=== PATIENT | female | born 1960 | race Two or more races ===

== ENCOUNTER 2016-10-30 18:19 | Emergency (ER) | payer OTHER ==
[~2016-10-30] VITALS: Ht 160 cm; Wt 79.8 kg
[2016-10-30] MEDS ORDERED: KETOROLAC TROMETHAMINE INJ 60 MG/2 ML VIAL IM ONE ×2 (18:48→19:00)
[2016-10-30 19:59] VITALS: BP 110/53
== END 2016-10-30 19:59 | disposition home or self-care (01) ==
LOC: ER 18:21
DX: M54.5 Low back pain (principal); M79.652 Pain in left thigh; F17.210 Nicotine dependence, cigarettes, uncomplicated; W01.0XXA Fall on same level from slipping, tripping and stumbling without subsequent striking against object, initial encounter; Y92.89 Other specified places as the place of occurrence of the external cause; Y93.89 Activity, other specified; Y99.8 Other external cause status
CPT/HCPCS: 72100; 96372; 99284; A4606; J1885; Z7610

== ENCOUNTER 2019-07-01 19:32 | Emergency (ER) | payer OTHER ==
[~2019-07-01] VITALS: Ht 160 cm; Wt 82.1 kg
[2019-07-01 19:43] VITALS: BP 140/87
--- NOTE | 2019-07-01 19:57 | NUR ---
AT BEDSIDE FOR EVAL.
[2019-07-01] MEDS ORDERED: NEOMY SULF/BACITRAC ZN/POLY 15 GM TUBE TP SCH (20:00)
--- NOTE | 2019-07-01 20:06 | NUR ---
Patient discharged to home in stable condition. Written and verbal after care instructions given. Patient verbalizes understanding of instruction.
== END 2019-07-01 20:07 | disposition home or self-care (01) ==
LOC: ER 19:36
DX: S30.0XXA Contusion of lower back and pelvis, initial encounter (principal); F17.200 Nicotine dependence, unspecified, uncomplicated; Z86.19 Personal history of other infectious and parasitic diseases; Z88.0 Allergy status to penicillin; Z88.6 Allergy status to analgesic agent; X58.XXXA Exposure to other specified factors, initial encounter; Y93.89 Activity, other specified; Y92.89 Other specified places as the place of occurrence of the external cause; Y99.8 Other external cause status

== ENCOUNTER 2019-10-01 08:53 | Emergency (ER) | payer OTHER ==
[~2019-10-01] VITALS: Ht 160 cm; Wt 90.7 kg
[2019-10-01 09:10] VITALS: BP 146/82
== END 2019-10-01 09:40 | disposition home or self-care (01) ==
LOC: ER 08:53
DX: S61.250A Open bite of right index finger without damage to nail, initial encounter (principal); F17.200 Nicotine dependence, unspecified, uncomplicated; Z86.19 Personal history of other infectious and parasitic diseases; Z88.0 Allergy status to penicillin; Z88.6 Allergy status to analgesic agent; W54.0XXA Bitten by dog, initial encounter; Y93.89 Activity, other specified; Y92.89 Other specified places as the place of occurrence of the external cause; Y99.8 Other external cause status

== ENCOUNTER 2021-04-11 03:28 | Inpatient (IN) | payer OTHER ==
[~2021-04-11] VITALS: Ht 161.3 cm; Wt 98.0 kg
--- NOTE | 2021-04-11 03:28 | NUR ---
PT AAOX4. BIBSELF C/O LOWER ABD PAIN X3 DAYS. WORST TODAY. PLACED IN BED 12 ON MONITOR AND PULSE OX. NO ACUTE DISTRESS NOTED. AWAITING ER MD FOR EVAL AND ORDERS. +NAUSEA -VOMITING.
[2021-04-11] MEDS ORDERED: ONDANSETRON HCL/PF 4 MG/2 ML VIAL ONE (03:52)
[2021-04-11] MEDS ORDERED: MORPHINE SULFATE INJ 4 MG/ML DISP.SYRIN ONE ×2 (03:52→08:09)
[2021-04-11] MEDS ORDERED: MORPHINE SULFATE INJ 2 MG/ML DISP.SYRIN IV ONE ×2 (04:00→08:30)
[2021-04-11] MEDS ORDERED: ONDANSETRON HCL/PF 4 MG/2 ML VIAL IVP ONE (04:00)
[2021-04-11] MEDS ORDERED: IV NS 0.9% 1,000 ML BAG IV ONE (04:00)
[2021-04-11] MEDS ORDERED: IOHEXOL-300 100 ML VIAL IV ONE (04:11)
[2021-04-11 04:13] LABS: BASOPHILS % (AUTO) 0.8 % (0.0-2.0); EOSINOPHILS % (AUTO) 2.1 % (0.0-6.0); HEMATOCRIT 46 % (33-45); HEMOGLOBIN 15.2 g/dL (11.5-14.8); LYMPHOCYTES % (AUTO) 24.2 % (20.0-44.0); MEAN CORPUSCULAR HGB CONC 33 g/dl (31.0-36.0); MEAN CORPUSCULAR VOLUME 94 fL (82-100); MONOCYTES # (AUTO) 0.4 K/uL (0.1-1.30); MONOCYTES % (AUTO) 10.1 % (2.0-12.0); NEUTROPHILS # (AUTO) 2.5 K/uL (1.8-8.9); NEUTROPHILS % (AUTO) 62.8 % (43.0-81.0); PLATELET COUNT (AUTO) 90 K/uL (150-450); RED BLOOD CELL COUNT(AUTO) 4.87 MIL/uL (4.0-5.2)
--- NOTE | 2021-04-11 04:41 | NUR ---
BLOOD WAS HEMOLYZED. IV LINE ESTABLISHED ON THE LEFT FOREARM 20G. BLOOD COLLECTED AND SENT TO THE LAB.
--- NOTE | 2021-04-11 04:42 | NUR ---
US AT BEDSIDE
[2021-04-11 05:14] LABS: ALBUMIN 3.5 g/dL (3.4-5.0); BILIRUBIN,DIRECT 0.3 mg/dL (0.0-0.2); BILIRUBIN,TOTAL 1.3 mg/dL (0.2-1.0); CALCIUM, SERUM 8.6 mg/dL (8.5-10.1); CREATININE 0.8 mg/dL (0.6-1.3); POTASSIUM 3.5 mmol/L (3.5-5.1); TOTAL PROTEIN, SERUM 7.2 g/dL (6.4-8.2)
--- NOTE | 2021-04-11 07:16 | NUR ---
RECEIVED REPORT FROM SHIRLEY FOR DOMINIQUE. PT IS AAOX3, NOT IN RESPIRATORY DISTRESS, V/S STABLE, KEPT RESTED AND COMFORTABLE. WILL CONTINUE TO MONITOR.
--- NOTE | 2021-04-11 07:37 | NUR ---
SPOKED TO EDVIN MASTER AUTOMOTIVE GLASS TECHNICIAN. PT IS APPROVED TO STAY FOR ADMISSION.
--- NOTE | 2021-04-11 07:59 | NUR ---
covid swab collected and sent to lab.
--- NOTE | 2021-04-11 08:01 | NUR ---
paged epic signal constructor for panel admission. Awaiiting MD to call back.
--- NOTE | 2021-04-11 08:11 | NUR ---
ER MD AND GI SPECIALIST LOCAL TANKER TRUCK DRIVER CONSULTING
[2021-04-11 08:14] LABS: BILIRUBIN,URINE SMALL (NEGATIVE); COLOR,URINE YELLOW (YELLOW); LEUKOCYTE ESTERASE ,URINE Negative (NEGATIVE); NITRITE, URINE Negative (NEGATIVE); PH,URINE 6.5 (5.0-8.0); PROTEIN,URINE Negative (NEGATIVE); UGLUCOSE Negative (NEGATIVE); UROBILINOGEN,URINE 0.2 EU/dL (0.2)
[2021-04-11 08:44] LABS: BACTERIA,URINE Rare /HPF (None Seen); SQUAMOUS EPITHELIAL CELL,UR Few /HPF (None Seen); WBC,URINE NONE SEEN /HPF (0-3)
--- NOTE | 2021-04-11 09:29 | NUR ---
room [id number]
--- NOTE | 2021-04-11 09:45 | NUR ---
RN NOTE RECEIVED REPORT FROM SARAH RN
--- NOTE | 2021-04-11 09:45 | NUR ---
REPORT GIVEN TO CHELSEY PAGE FOR DOMINIQUE.
--- NOTE | 2021-04-11 09:51 | NUR ---
RN NOTE PATIENT WAS BROUGHT UP VIA BED. A/O X4. ON ROOM AIR, NO SOB NOTED. IN NO APPARENT DISTRESS. DENIES ANY PAIN AT THIS TIME. IV ACCESS ON L WRIST #20, R WRIST #22 G, INTACT AND PATENT. SKIN IS INTACT. SAFETY MEASURES MAINTAINED. BED IN LOWEST POSITION, BRAKES LOCKED. SIDE RAILS UP X2. CALL LIGHT WITHIN REACH. VS 1116/85 NM 73 RR 18 T 98.4 SA02 97%
[2021-04-11 10:00] VITALS: BP 121/69
--- NOTE | 2021-04-11 10:50 | NUR ---
RN NOTE DR DEBBY PATEL VERBALLY ORDERED REGULAR DIET. REPEAT ORDER AND CARRIED OUT.
[2021-04-11] MEDS ORDERED: Z GUARD REMEDY 2 OZ OINT TP PRN (11:00)
[2021-04-11] MEDS ORDERED: ZOLPIDEM TARTRATE 5 MG TABLET PO PRN (11:00)
[2021-04-11] MEDS ORDERED: ACETAMINOPHEN 325 MG TABLET PO PRN (11:00)
[2021-04-11] MEDS ORDERED: MAGNESIUM HYDROXIDE 30 ML UDC PO PRN (11:00)
[2021-04-11] MEDS: HYDROCODONE/APAP 5/325MG TABLET PO PRN ×2 (13:04→17:26)
[2021-04-11 16:00] VITALS: BP 116/85
[2021-04-11] MEDS: ONDANSETRON HCL/PF 4 MG/2 ML VIAL IVP PRN (16:02)
--- NOTE | 2021-04-11 18:13 | NUR ---
RN CLOSING NOTE PATIENT SITTING IN A CHAIR. A/O X4. ON ROOM AIR, NO SOB NOTED. IN NO APPARENT DISTRESS. IV ACCESS ON L WRIST #20, R WRIST #22 G, INTACT AND PATENT. ABLE TO MAKE NEEDS KNOWN. SAFETY MEASURES MAINTAINED. BED IN LOWEST POSITION, BRAKES LOCKED. SIDE RAILS UP X2. KEPT CALL LIGHT WITHIN REACH. WILL ENDORSE CONTINUITY OF CARE TO ONCOMING SHIFT.
--- NOTE | 2021-04-11 19:45 | NUR ---
MS RN OPENING NOTES Patient is awake, A&Ox4. C/o unrelieved abdominal pain, will f/u with MD about possibly getting something stronger. No other complaints at this time. Patient able to make needs known. Family at bedside.
[2021-04-11 20:00] VITALS: BP 116/86
--- NOTE | 2021-04-11 20:45 | NUR ---
Patient continues to c/o severe mid-abdominal pain and that [place] is not helping at all. MD on-call notified with new order for Morphine 2mg q4h PRN for severe pain 8-10. Patient thankful.
[2021-04-11] MEDS: MORPHINE SULFATE INJ 2 MG/ML DISP.SYRIN IV PRN (21:42)
[2021-04-12] MEDS: MORPHINE SULFATE INJ 2 MG/ML DISP.SYRIN IV PRN ×5 (02:23→20:40)
[2021-04-12] MEDS: HYDROCODONE/APAP 5/325MG TABLET PO PRN ×3 (04:11→12:32)
[2021-04-12] MEDS: ONDANSETRON HCL/PF 4 MG/2 ML VIAL IVP PRN ×3 (05:47→20:40)
--- NOTE | 2021-04-12 06:31 | NUR ---
Patient sleeping intermittently throughout night though easy to wake. Continues to have stomach pain needing morphine and norco, but relief felt. c/o feeling of constipation MOM given at 0411 -still no BM. Had episode of nausea at 0545 vomited x1 clear liquid then resolved after admin of zofran. Patient is now calm laying in bed. awaiting AM GI consult.
[2021-04-12 08:00] VITALS: BP 134/85
[2021-04-12] MEDS: PANTOPRAZOLE 40 MG TABLET.DR PO SCH (08:26)
[2021-04-12 08:54] LABS: BASOPHILS % (AUTO) 0.4 % (0.0-2.0); EOSINOPHILS % (AUTO) 1.1 % (0.0-6.0); HEMATOCRIT 45 % (33-45); HEMOGLOBIN 14.7 g/dL (11.5-14.8); LYMPHOCYTES # (AUTO) 0.6 K/uL (0.8-4.8); MEAN CORPUSCULAR HGB CONC 33 g/dl (31.0-36.0); MEAN CORPUSCULAR VOLUME 95 fL (82-100); MONOCYTES # (AUTO) 0.4 K/uL (0.1-1.30); MONOCYTES % (AUTO) 8.9 % (2.0-12.0); NEUTROPHILS # (AUTO) 3.1 K/uL (1.8-8.9); NEUTROPHILS % (AUTO) 74.6 % (43.0-81.0); PLATELET COUNT (AUTO) 54 K/uL (150-450); RED BLOOD CELL COUNT(AUTO) 4.79 MIL/uL (4.0-5.2); WHITE BLOOD COUNT (AUTO) 4.2 K/uL (4.3-11.0)
[2021-04-12 09:08] LABS: CALCIUM, SERUM 8.6 mg/dL (8.5-10.1); CREATININE 0.9 mg/dL (0.6-1.3); MAGNESIUM 2.3 mg/dL (1.8-2.4); PHOSPHORUS 3.5 mg/dL (2.5-4.9); POTASSIUM 3.6 mmol/L (3.5-5.1)
[2021-04-12 09:12] LABS: THYROID STIMULATING HORMONE 1.999 uIU/mL (0.358-3.74)
[2021-04-12 11:00] LABS: LYMPHOCYTES % (MANUAL) 8 % (16-48); MONOCYTES % (MANUAL) 10 % (0-11.0); NEUTROPHILS % (MANUAL) 82 (42-76)
[2021-04-12] MEDS ORDERED: LACTULOSE 10 G/15 ML UDC (PYXIS) PO PRN (13:00)
[2021-04-12] MEDS ORDERED: HEPARIN INFUSION/D5W 500 ML IV PRN (15:30)
[2021-04-12] MEDS ORDERED: IOHEXOL-300 100 ML VIAL IV ONE (15:56)
[2021-04-12] MEDS ORDERED: IV NS 0.9% 250 ML IV ONE (15:56)
[2021-04-12 16:00] VITALS: BP 135/95
--- NOTE | 2021-04-12 19:14 | NUR ---
1ST ATTEMPT AT 1600 UNSUCCESSFUL, DUE TO LAB AT BEDSIDE. 2ND ATTEMPT @ 1740 IV INFILTRATED UPON INJECTION OF 10CC SALINE, PT'S NURSE WAS UNABLE TO SUCCESSFULLY PLACE NEW IV IN CT ROOM. PT WAS TAKEN BY WHEELCHAIR BACK TO ROOM. PLEASE CALL RADIOLOGY AT EXT# [phone] WHEN ADEQUATE IV ACCESS IS OBTAINED.
--- NOTE | 2021-04-12 19:43 | NUR ---
Patient is A&Ox4. C/o 6/ pain but does not want norco as it makes her nauseous. IV attempt made unsuccessful -AM unsuccessful as well. No IV access at this time. Will f/u about midline insertion. Nursing interventions in place.
[2021-04-12 20:00] VITALS: BP 129/86
--- NOTE | 2021-04-12 21:07 | NUR ---
went down for CT
[2021-04-12] MEDS: HEPARIN INFUSION/D5W 500 ML IV PRN (22:32)
--- NOTE | 2021-04-12 22:32 | NUR ---
Heparin protocol followed. 2 nurses verify and sign dosing per order for non-ACS heparin therapy. Put in order for PTT 6 hours after start. Will monitor patient closely. Heparin drip started at 2232.
[2021-04-12 23:01] LABS: HEMOGLOBIN 14.8 g/dL (11.5-14.8); MONOCYTES # (AUTO) 0.5 K/uL (0.1-1.30)
[2021-04-12 23:07] LABS: BASOPHILS % (AUTO) 0.4 % (0.0-2.0); EOSINOPHILS % (AUTO) 0.6 % (0.0-6.0); HEMATOCRIT 45 % (33-45); LYMPHOCYTES # (AUTO) 0.7 K/uL (0.8-4.8); LYMPHOCYTES % (AUTO) 11.5 % (20.0-44.0); MEAN CORPUSCULAR HGB CONC 33 g/dl (31.0-36.0); MEAN CORPUSCULAR VOLUME 95 fL (82-100); MONOCYTES % (AUTO) 7.6 % (2.0-12.0); NEUTROPHILS # (AUTO) 5.2 K/uL (1.8-8.9); NEUTROPHILS % (AUTO) 79.9 % (43.0-81.0); PLATELET COUNT (AUTO) 55 K/uL (150-450); RED BLOOD CELL COUNT(AUTO) 4.78 MIL/uL (4.0-5.2); WHITE BLOOD COUNT (AUTO) 6.5 K/uL (4.3-11.0)
[2021-04-12 23:47] LABS: BASOPHILS % (MANUAL) 0 % (0.0-2.0); EOSINOPHILS % (MANUAL) 1 % (0-4); LYMPHOCYTES % (MANUAL) 7 % (16-48)
[2021-04-12 23:48] LABS: BAND % (MANUAL) 5 % (0.0-5.0); MONOCYTES % (MANUAL) 11 % (0-11.0)
[2021-04-12 23:49] LABS: NEUTROPHILS % (MANUAL) 76 (42-76)
[2021-04-13] MEDS: MORPHINE SULFATE INJ 2 MG/ML DISP.SYRIN IV PRN ×6 (00:40→21:26)
[2021-04-13] MEDS ORDERED: NA PHOS,M-B/NA PHOS,DI-BA 1 EA ENEMA RC ONE (04:00)
--- NOTE | 2021-04-13 04:39 | NUR ---
PTT being drawn by audio visual design engineer.
[2021-04-13 04:54] LABS: BASOPHILS # (AUTO) 0.1 K/uL (0.0-0.2); BASOPHILS % (AUTO) 0.9 % (0.0-2.0); EOSINOPHILS % (AUTO) 1.4 % (0.0-6.0); HEMATOCRIT 45 % (33-45); HEMOGLOBIN 14.7 g/dL (11.5-14.8); LYMPHOCYTES # (AUTO) 1.1 K/uL (0.8-4.8); LYMPHOCYTES % (AUTO) 17.4 % (20.0-44.0); MEAN CORPUSCULAR HGB CONC 33 g/dl (31.0-36.0); MEAN CORPUSCULAR VOLUME 94 fL (82-100); MONOCYTES # (AUTO) 0.5 K/uL (0.1-1.30); MONOCYTES % (AUTO) 7.8 % (2.0-12.0); NEUTROPHILS # (AUTO) 4.6 K/uL (1.8-8.9); NEUTROPHILS % (AUTO) 72.5 % (43.0-81.0); PLATELET COUNT (AUTO) 64 K/uL (150-450); RED BLOOD CELL COUNT(AUTO) 4.76 MIL/uL (4.0-5.2); WHITE BLOOD COUNT (AUTO) 6.4 K/uL (4.3-11.0)
[2021-04-13 05:14] LABS: ALBUMIN 3.7 g/dL (3.4-5.0); CALCIUM, SERUM 8.7 mg/dL (8.5-10.1); MAGNESIUM 2.4 mg/dL (1.8-2.4); PHOSPHORUS 3.9 mg/dL (2.5-4.9); POTASSIUM 3.7 mmol/L (3.5-5.1); TOTAL PROTEIN, SERUM 7.4 g/dL (6.4-8.2)
--- NOTE | 2021-04-13 05:56 | NUR ---
enema effective able to have large BM
--- NOTE | 2021-04-13 06:42 | NUR ---
0430 PTT 140.7. Per Efrain stop heparin drip and hold for 1 hour then redraw PTT. Notify AM of result.
--- NOTE | 2021-04-13 06:45 | NUR ---
Patient currently awake, A&Ox4. Sleeping but easy to rouse. Feels relieved after BM. heparin drip is still stopped per MD order.
[2021-04-13 07:07] LABS: CARBOHYDRATE AG 19-9 28 U/mL (0-35)
[2021-04-13] MEDS: PANTOPRAZOLE 40 MG TABLET.DR PO SCH (07:30)
--- NOTE | 2021-04-13 07:30 | NUR ---
RN MS NOTES PT IN BED, AWAKE, ALERT AND ORIENTED, WITH COMPLAINT OF ABDOMINAL PAIN AND NAUSEA, NOT IN DISTRESS, AMBULATES INSIDE HER ROOM AND IN THE BATHROOM WITH STEADY GAIT, HEPARIN DRIP ON HOLD, AWAITING FOR LATEST PTT RESULT, NO BLEEDING NOTED.
[2021-04-13 08:00] VITALS: BP 152/96
[2021-04-13 08:07] LABS: IMMUNOGLOBULIN A, SERUM 227 mg/dL (87-352); IMMUNOGLOBULIN G, SERUM 1720 mg/dL (586-1602); IMMUNOGLOBULIN M, SERUM 199 mg/dL (26-217)
[2021-04-13] MEDS: ONDANSETRON HCL/PF 4 MG/2 ML VIAL IVP PRN (08:10)
--- NOTE | 2021-04-13 09:06 | NUR ---
RN MS NOTES RECEIVED LATEST PTT RESULT 45.6, TAMMI LEAD CYTOGENETIC TECHNOLOGIST INFORMED AND ORDERED TO REFER TO PHARMACY FOR PROTOCOL, CONSULTED WITH PHARMACIST EDVIN, RESTARTED PT ON 1200 U/HR HEPARIN DRIP AND ORDERED REPEAT PTT AFTER 6 HOURS.
[2021-04-13 10:07] LABS: *SPE ALPHA-1-GLOBULIN 0.3 g/dL (0.0-0.4); *SPE ALPHA-2-GLOBULIN 0.7 g/dL (0.4-1.0); *SPE M-SPIKE Not Observed g/dL (Not Observed); *SPEGAMMA GLOBULIN 1.9 g/dL (0.4-1.8)
[2021-04-13] MEDS: METOCLOPRAMIDE HCL 10 MG/2 ML VIAL IV SCH ×3 (11:07→21:25)
[2021-04-13 12:06] LABS: AFP, TUMOR MARKER Note: ng/mL (0.0-8.3)
[2021-04-13 16:00] VITALS: BP 120/82
[2021-04-13 16:48] LABS: BASOPHILS % (AUTO) 0.7 % (0.0-2.0); EOSINOPHILS % (AUTO) 2.1 % (0.0-6.0); HEMATOCRIT 42 % (33-45); HEMOGLOBIN 13.6 g/dL (11.5-14.8); LYMPHOCYTES # (AUTO) 1.1 K/uL (0.8-4.8); LYMPHOCYTES % (AUTO) 24.2 % (20.0-44.0); MEAN CORPUSCULAR HGB CONC 32 g/dl (31.0-36.0); MEAN CORPUSCULAR VOLUME 95 fL (82-100); MONOCYTES # (AUTO) 0.5 K/uL (0.1-1.30); MONOCYTES % (AUTO) 9.7 % (2.0-12.0); NEUTROPHILS % (AUTO) 63.3 % (43.0-81.0); PLATELET COUNT (AUTO) 62 K/uL (150-450); RED BLOOD CELL COUNT(AUTO) 4.43 MIL/uL (4.0-5.2); WHITE BLOOD COUNT (AUTO) 4.7 K/uL (4.3-11.0)
--- NOTE | 2021-04-13 17:08 | NUR ---
RN MS NOTES PTT 58.1, NO CHANGE PER HEPARIN SLIDING SCALE, PTT ORDERED IN AM.
--- NOTE | 2021-04-13 18:39 | NUR ---
RN CLOSING NOTE PATIENT SITTING ON BED, A/O X4. ON ROOM AIR, NO SOB NOTED, NOT IN DISTRESS, WITH IV ACCESS ON L WRIST #20, R WRIST #22 G, INTACT AND PATENT. ABLE TO MAKE NEEDS KNOWN. SAFETY MEASURES MAINTAINED. BED IN LOWEST LOCKED POSITION. SIDE RAILS UP X2. KEPT CALL LIGHT WITHIN REACH. WILL ENDORSE CONTINUITY OF CARE TO THEATER USHER.
--- NOTE | 2021-04-13 19:30 | NUR ---
MS RN OPENING NOTE RECEIVED PATIENT SITTING ON BED, AWAKE, A/O X4. ON ROOM AIR, NO SOB NOTED, NOT IN ANY FORM OF DISTRESS NOTED, WITH IV ACCESS ON L WRIST #20 WITH ONGOING HEPARIN DRIP AT 1200 UNITS/HR, NO S/SX OF BLEEDING NOTED, R WRIST #22 G, INTACT AND PATENT, KADEN MIDLINE, PATENT AND FLUSHES WELL. ABLE TO MAKE NEEDS KNOWN. NO COMPLAINTS OF PAIN AT THIS TIME. SAFETY MEASURES OBSERVED. BED IN LOWEST LOCKED POSITION. SIDE RAILS UP X2. KEPT CALL LIGHT WITHIN REACH. WILL CONTINUE TO MONITOR PATIENT'S CURRENT CONDITION.
[2021-04-13 20:00] VITALS: BP 118/63
[2021-04-13] MEDS: HEPARIN INFUSION/D5W 500 ML IV PRN (21:12)
--- NOTE | 2021-04-13 21:26 | NUR ---
PAIN MANAGEMENT PATIENT HAS C/O OF ABDOMINAL PAIN WITH PAIN SCALE OF 9/10, DUE MORPHINE GIVEN ORDERED. WILL CONTINUE TO MONITOR PATIENT'S PAIN STATUS.
[2021-04-14] MEDS: ONDANSETRON HCL/PF 4 MG/2 ML VIAL IVP PRN ×2 (01:55→13:56)
[2021-04-14] MEDS: MORPHINE SULFATE INJ 2 MG/ML DISP.SYRIN IV PRN ×6 (01:55→22:33)
--- NOTE | 2021-04-14 01:57 | NUR ---
PAIN MANAGEMENT PATIENT HAS C/O OF ABDOMINAL PAIN WITH PAIN SCALE OF 9/10, DUE MORPHINE GIVEN ORDERED. WILL CONTINUE TO MONITOR PATIENT'S PAIN STATUS.
[2021-04-14] MEDS: METOCLOPRAMIDE HCL 10 MG/2 ML VIAL IV SCH ×4 (03:40→21:16)
[2021-04-14 06:12] LABS: BASOPHILS % (AUTO) 0.6 % (0.0-2.0); EOSINOPHILS % (AUTO) 2.4 % (0.0-6.0); HEMATOCRIT 40 % (33-45); LYMPHOCYTES # (AUTO) 1.2 K/uL (0.8-4.8); LYMPHOCYTES % (AUTO) 30.8 % (20.0-44.0); MEAN CORPUSCULAR HGB CONC 33 g/dl (31.0-36.0); MEAN CORPUSCULAR VOLUME 94 fL (82-100); MONOCYTES # (AUTO) 0.3 K/uL (0.1-1.30); MONOCYTES % (AUTO) 8.3 % (2.0-12.0); NEUTROPHILS # (AUTO) 2.3 K/uL (1.8-8.9); NEUTROPHILS % (AUTO) 57.9 % (43.0-81.0); PLATELET COUNT (AUTO) 57 K/uL (150-450); RED BLOOD CELL COUNT(AUTO) 4.23 MIL/uL (4.0-5.2)
--- NOTE | 2021-04-14 06:48 | NUR ---
MS RN CLOSING NOTE PATIENT IN BED, AWAKE, A/O X4. ON ROOM AIR, NO SOB NOTED, NOT IN ANY FORM OF DISTRESS NOTED, IV ACCESS ON L WRIST #20 WITH ONGOING HEPARIN DRIP AT 1200 UNITS/HR, NO S/SX OF BLEEDING NOTED, R WRIST #22 G, INTACT AND PATENT, KADEN MIDLINE, PATENT AND FLUSHES WELL. ABLE TO MAKE NEEDS KNOWN. NO COMPLAINTS OF PAIN AT THIS TIME. SAFETY MEASURES OBSERVED. BED IN LOWEST LOCKED POSITION. SIDE RAILS UP X2. KEPT CALL LIGHT WITHIN REACH. ALL NEEDS ATTENDED AND MET, WILL ENDORSE TO ONCOMING SHIFT FOR DOMINIQUE.
[2021-04-14 06:50] LABS: CALCIUM, SERUM 8.4 mg/dL (8.5-10.1); CREATININE 0.9 mg/dL (0.6-1.3); MAGNESIUM 2.2 mg/dL (1.8-2.4); PHOSPHORUS 3.8 mg/dL (2.5-4.9); POTASSIUM 3.9 mmol/L (3.5-5.1)
--- NOTE | 2021-04-14 07:15 | NUR ---
MS RN NOTES PATIENT IN BED, AWAKE AND VERBALLY RESPONSIVE, A/O X4. BREATHING EVEN AND UNLABORED, ON ROOM AIR, NO SOB NOTED. IV ACCESS ON L WRIST #20 INTACT WITH HEPARIN DRIP AT 1200 UNITS/HR, NO S/SX OF BLEEDING. R WRIST #22 G AND KADEN MIDLINE INTACT AND PATENT. NO COMPLAINTS OF PAIN AT THIS TIME. SAFETY MEASURES IN PLACE. WILL CONTINUE TO MONITOR.
[2021-04-14] MEDS: PANTOPRAZOLE 40 MG TABLET.DR PO SCH (07:45)
[2021-04-14 08:00] VITALS: BP 129/86
--- NOTE | 2021-04-14 08:00 | NUR ---
RN NOTES RECEIVED PTT RESULT OF 129.9 FROM LAB [facility]ARY[facility] ROGERS. HEPARIN INFUSION PROTOCOL FOLLOWED PER PHARMACY: HOLD INFUSION FOR 1 HR, THEN DECREASE RATE BY 3UNITS/KG/NF=[id number]/HR. PTT SCHEDULED TODAY AT 1400. NO S/SX OF BLEEDING NOTED. WILL CONTINUE TO MONITOR.
[2021-04-14] MEDS ORDERED: IOHEXOL-300 100 ML VIAL IV ONE (08:39)
[2021-04-14] MEDS ORDERED: IV NS 0.9% 250 ML IV ONE (08:39)
--- NOTE | 2021-04-14 08:42 | NUR ---
RN NOTES CNA HHA CURRENTLY AT BEDSIDE TO TAKE PATIENT FOR CT PROCEDURE.
--- NOTE | 2021-04-14 08:57 | NUR ---
RN NOTES PATIENT BACK FROM CT PROCEDURE VIA WHEELCHAIR, ACCOMPANIED BY 1 DYER HELPER.
--- NOTE | 2021-04-14 09:30 | NUR ---
RN NOTES HEPARIN DRIP RESTARTED W/ NEW RATE OF 950U/HR. PTT AT 1400 TODAY.
--- NOTE | 2021-04-14 12:16 | NUR ---
RN NOTES PATIENT WAS SEEN BY PATRICIA JOHANSEN NP, AND MADE AWARE OF CURRENT PLAN OF CARE.
--- NOTE | 2021-04-14 14:15 | NUR ---
RN NOTES CALLED LAB FOR BLOOD DRAW FOR PTT AT 1400.
--- NOTE | 2021-04-14 14:34 | NUR ---
RN NOTES PATIENT OBSERVATION ASSISTANT AT BEDSIDE; ABLE TO DRAW BLOOD FROM MIDLINE.
--- NOTE | 2021-04-14 15:30 | NUR ---
RN NOTES RECEIVED PTT RESULT OF 70.0, NO CHANGE PER PROTOCOL. CONTINUE RATE OF 950UNITS/HR, PTT 04/15/2021 IN AM. WILL ENDORSE TO MOTOR VEHICLE CLERK RN.
[2021-04-14 16:00] VITALS: BP 119/85
[2021-04-14 17:42] LABS: BASOPHILS % (AUTO) 1.4 % (0.0-2.0); EOSINOPHILS % (AUTO) 2.1 % (0.0-6.0); HEMATOCRIT 39 % (33-45); HEMOGLOBIN 12.9 g/dL (11.5-14.8); LYMPHOCYTES # (AUTO) 0.9 K/uL (0.8-4.8); LYMPHOCYTES % (AUTO) 25.2 % (20.0-44.0); MEAN CORPUSCULAR HGB CONC 33 g/dl (31.0-36.0); MEAN CORPUSCULAR VOLUME 94 fL (82-100); MONOCYTES # (AUTO) 0.3 K/uL (0.1-1.30); MONOCYTES % (AUTO) 8.9 % (2.0-12.0); NEUTROPHILS # (AUTO) 2.2 K/uL (1.8-8.9); NEUTROPHILS % (AUTO) 62.4 % (43.0-81.0); PLATELET COUNT (AUTO) 56 K/uL (150-450); RED BLOOD CELL COUNT(AUTO) 4.18 MIL/uL (4.0-5.2); WHITE BLOOD COUNT (AUTO) 3.5 K/uL (4.3-11.0)
--- NOTE | 2021-04-14 18:46 | NUR ---
RN NOTES PATIENT RESTING IN BED, EYES CLOSED, ABLE TO BE AWAKENED. CONTINUES ON HEPARIN DRIP PER PROTOCOL; NO S/SX OF BLEEDING NOTED. IV LINES INTACT AND PATENT. DUE MEDS AND PRN MEDS GIVEN TO PATIENT. SAFETY MEASURES IN PLACE. WILL ENDORSE TO PROPULSION ENGINEER RN FOR DOMINIQUE.
--- NOTE | 2021-04-14 19:48 | NUR ---
MS RN CLOSING NOTE RECEIVED PATIENT IN BED, AWAKE, A/O X4. ON ROOM AIR TOLERATING WELL, NO SOB NOTED, NOT IN ANY FORM OF DISTRESS NOTED, IV ACCESS ON L WRIST #20 WITH ONGOING HEPARIN DRIP AT 950 UNITS/HR, NO S/SX OF BLEEDING NOTED, R WRIST #22 G, INTACT AND PATENT, KADEN MIDLINE, PATENT AND FLUSHES WELL. ABLE TO MAKE NEEDS KNOWN. NO COMPLAINTS OF PAIN AT THIS TIME. SAFETY MEASURES OBSERVED. BED IN LOWEST LOCKED POSITION. SIDE RAILS UP X2. KEPT CALL LIGHT WITHIN REACH. WILL CONTINUE TO MONITOR PATIENT'S CURRENT STATUS. Addendum: 04/14/21 at 1951 by PAT CABRERA RN ABOVE NOTES IS MS BARBOSA OPENING NOTES.
[2021-04-14 20:00] VITALS: BP_SYST 118; BP_DIAS 63; BP_DIAS 77
[2021-04-14] MEDS: HEPARIN INFUSION/D5W 500 ML IV PRN (22:04)
--- NOTE | 2021-04-14 22:35 | NUR ---
PAIN MANAGEMENT PATIENT HAS C/O PAIN ON ABDOMINAL AREA DELMIS PAIN SCALE OF 9/10. DUE MORPHINE GIVEN ORDERED. WILL CONTINUE TO MONITOR PAIN STATUS.
[2021-04-15] MEDS: MAG HYDROX/AL HYDROX/SIMETH 30 ML UDC PO PRN ×2 (01:43→08:38)
[2021-04-15] MEDS: ONDANSETRON HCL/PF 4 MG/2 ML VIAL IVP PRN (01:43)
[2021-04-15 02:06] LABS: *ANTITHROMBIN III AG 77 % (72-124); *DILUTE PROTHROMBIN TIME (dPT) 43.7 sec (0.0-55.0); *THROMBIN TIME 19.5 sec (0.0-23.0); *dPT CONFIRM RATIO 0.98 Ratio (0.00-1.40); *dRVVT 37.9 sec (0.0-47.0); PROTEIN C ACTIVITY 70 % (73-180)
[2021-04-15] MEDS: MORPHINE SULFATE INJ 2 MG/ML DISP.SYRIN IV PRN ×5 (02:43→20:20)
--- NOTE | 2021-04-15 02:45 | NUR ---
PAIN MANAGEMENT PATIENT HAS C/O PAIN ON ABDOMINAL AREA DELMIS PAIN SCALE OF 9/10. DUE MORPHINE GIVEN ORDERED. WILL CONTINUE TO MONITOR PAIN STATUS.
[2021-04-15] MEDS: METOCLOPRAMIDE HCL 10 MG/2 ML VIAL IV SCH ×4 (03:36→21:10)
[2021-04-15 06:08] LABS: BASOPHILS % (AUTO) 0.5 % (0.0-2.0); EOSINOPHILS % (AUTO) 2.1 % (0.0-6.0); HEMATOCRIT 39 % (33-45); HEMOGLOBIN 12.7 g/dL (11.5-14.8); LYMPHOCYTES # (AUTO) 0.9 K/uL (0.8-4.8); LYMPHOCYTES % (AUTO) 25.1 % (20.0-44.0); MEAN CORPUSCULAR HGB CONC 33 g/dl (31.0-36.0); MEAN CORPUSCULAR VOLUME 95 fL (82-100); MONOCYTES # (AUTO) 0.4 K/uL (0.1-1.30); NEUTROPHILS # (AUTO) 2.3 K/uL (1.8-8.9); NEUTROPHILS % (AUTO) 62.3 % (43.0-81.0); PLATELET COUNT (AUTO) 51 K/uL (150-450); RED BLOOD CELL COUNT(AUTO) 4.12 MIL/uL (4.0-5.2); WHITE BLOOD COUNT (AUTO) 3.7 K/uL (4.3-11.0)
--- NOTE | 2021-04-15 06:37 | NUR ---
MS RN CLOSING NOTES PATIENT IN BED, AWAKE, A/O X4. ON ROOM AIR TOLERATING WELL, NO SOB NOTED, NOT IN ANY FORM OF DISTRESS NOTED, IV ACCESS ON L WRIST #20 WITH ONGOING HEPARIN DRIP AT 950 UNITS/HR, NO S/SX OF BLEEDING NOTED, R WRIST #22 G, INTACT AND PATENT, KADEN MIDLINE, PATENT AND FLUSHES WELL. ABLE TO MAKE NEEDS KNOWN. NO COMPLAINTS OF PAIN AT THIS TIME. SAFETY MEASURES OBSERVED. BED IN LOWEST LOCKED POSITION. SIDE RAILS UP X2. KEPT CALL LIGHT WITHIN REACH. ALL NEEDS ATTENDED AND MET. WILL CONTINUE TO MONITOR. Addendum: 04/15/21 at 0642 by PAT CABRERA RN ENDORSED TO ONCOMING SHIFT FOR DOMINIQUE.
[2021-04-15 06:50] LABS: CALCIUM, SERUM 8.2 mg/dL (8.5-10.1); PHOSPHORUS 3.9 mg/dL (2.5-4.9); POTASSIUM 3.3 mmol/L (3.5-5.1)
[2021-04-15] MEDS: PANTOPRAZOLE 40 MG TABLET.DR PO SCH (07:30)
--- NOTE | 2021-04-15 09:03 | NUR ---
RN NOTES RECEIVED PTT RESULT OF 73.7; DECREASE RATE BY 200UNITS/HR PER PROTOCOL. CURRENT RATE OF 750UNITS/HR. PTT 04/15/21 @ 1500. NO S/SX OF BLEEDING. CO-SIGNED BY ANOTHER RN KAYLEE. WILL CONTINUE TO MONITOR.
[2021-04-15] MEDS: POTASSIUM CL. PREMIX PERIPHER. 50 ML IV SCH ×2 (09:19→12:04)
--- NOTE | 2021-04-15 09:35 | NUR ---
RN NOTES PATIENT FOR SCHEDULED CT PROCEDURE LIVER PROTOCOL. SPOKE W/ SUSIE, ULISES HONG, AND WILL INDUSTRIAL ARTS TEACHER PATIENT
--- NOTE | 2021-04-15 10:00 | NUR ---
RN NOTES PATIENT SEEN BY PATRICIA JOHANSEN NP, TODAY AND INFORMED ABOUT PLAN OF CARE.
--- NOTE | 2021-04-15 10:29 | NUR ---
RN NOTES SPOKE W/ ATIF FROM RADIOLOGY; RAD ORDER TO BE MODIFIED.
--- NOTE | 2021-04-15 10:47 | NUR ---
RN NOTES PATIENT PICKED UP BY ULISES RICHARDS, FOR CT PROCEDURE: CT ABDOMEN W/ CONTRAST MULTIPHASE LIVER PROTOCOL, VIA WHEELCHAIR.
[2021-04-15] MEDS ORDERED: IV NS 0.9% 250 ML IV ONE (10:52)
[2021-04-15] MEDS ORDERED: IOHEXOL-300 100 ML VIAL IV ONE (10:52)
[2021-04-15] MEDS ORDERED: CT SWABBABLE VALVE TRANS SET 1 EA INFUS.SET MC ONE (10:52)
[2021-04-15] MEDS ORDERED: IOHEXOL-350 100 ML VIAL IV ONE (10:53)
--- NOTE | 2021-04-15 11:25 | NUR ---
RN NOTES PATIENT RETURNED FROM CT PROCEDURE VIA WHEELCHAIR, ACCOMPANIED BY ULISES RICHARDS
--- NOTE | 2021-04-15 15:02 | NUR ---
RN NOTES PROGRAMMING ENGINEER AT BEDSIDE AND PROVIDED BLOOD FOR PTT.
--- NOTE | 2021-04-15 16:00 | NUR ---
RN NOTES RECEIVED PTT RESULT OF 45.3. PER HEPARIN INFUSION PROTOCOL: GIVE BOLUS OF HEPARIN 3600UNITS X1, THEN INCREASE RATE BY 200UNITS/HR, NEW RATE OF 950UNITS/HR, AND PTT 04/15/21 @ 2200. SPOKE W/ PHARMACY TO CONFIRM INFUSION PROTOCOL AND AGREED; CHANGED BOLUS TO 3500UNITS. NO S/SX OF BLEEDING. WILL CONTINUE TO MONITOR AND ENDORSE TO JEWEL BEARING MAKER RN.
[2021-04-15] MEDS ORDERED: GADOTERATE MEGLUMINE 10 MMOL/20 ML VIAL IV ONE (16:19)
[2021-04-15] MEDS ORDERED: HEPARIN SODIUM, PORCINE 5000 UNITS/1 ML VIAL IV ONE (16:30)
--- NOTE | 2021-04-15 19:18 | NUR ---
MS RN CLOSING NOTES PATIENT IN BED, AWAKE, A/O X4. ON ROOM AIR TOLERATING WELL, NO SOB NOTED, NOT IN ANY FORM OF DISTRESS NOTED, IV ACCESS ON L WRIST #20 WITH ONGOING HEPARIN DRIP AT 950 UNITS/HR, NO S/SX OF BLEEDING NOTED, R WRIST #22 G, INTACT AND PATENT, KADEN MIDLINE, PATENT AND FLUSHES WELL. ABLE TO MAKE NEEDS KNOWN. WITH NO COMPLAINTS OF PAIN AT THIS TIME. SAFETY MEASURES OBSERVED. BED IN LOWEST LOCKED POSITION. SIDE RAILS UP X2. KEPT CALL LIGHT WITHIN REACH. ALL NEEDS ATTENDED. WILL ENDORSE FOR DOMINIQUE TO DESIGN ENGINEER AGRICULTURAL EQUIPMENT.
[2021-04-15 20:00] VITALS: BP 118/75
[2021-04-16] MEDS: MORPHINE SULFATE INJ 2 MG/ML DISP.SYRIN IV PRN ×3 (01:47→12:00)
--- NOTE | 2021-04-16 03:01 | NUR ---
MS RN NOTES HEPARIN DRIP HELD 4 HOURS PRIOR TO BIOPSY PER MD ORDERS. WILL CONTINUE TO MONITOR.
[2021-04-16] MEDS: METOCLOPRAMIDE HCL 10 MG/2 ML VIAL IV SCH ×2 (04:03→09:46)
--- NOTE | 2021-04-16 06:01 | NUR ---
MS RN NOTES AWAKE & RESPONSIVE. NOT IN ANY DISTRESS. NO SOB NOTED. DENIES ANY PAIN OR DISCOMFORT AT THIS TIME. WITH IV-HL PATENT & INTACT. MONITORED ACCORDINGLY. CALL LIGHT WITHIN REACH. BED IN LOWEST POSITION. SR UP X 3 FOR SAFETY. WILL ENDORSE TO NEXT SHIFT.
[2021-04-16 06:08] LABS: BASOPHILS % (AUTO) 0.6 % (0.0-2.0); HEMATOCRIT 39 % (33-45); HEMOGLOBIN 12.8 g/dL (11.5-14.8); LYMPHOCYTES # (AUTO) 0.8 K/uL (0.8-4.8); LYMPHOCYTES % (AUTO) 26.1 % (20.0-44.0); MEAN CORPUSCULAR HGB CONC 33 g/dl (31.0-36.0); MEAN CORPUSCULAR VOLUME 94 fL (82-100); MONOCYTES # (AUTO) 0.3 K/uL (0.1-1.30); MONOCYTES % (AUTO) 8.7 % (2.0-12.0); NEUTROPHILS # (AUTO) 1.8 K/uL (1.8-8.9); NEUTROPHILS % (AUTO) 62.6 % (43.0-81.0); PLATELET COUNT (AUTO) 52 K/uL (150-450); RED BLOOD CELL COUNT(AUTO) 4.15 MIL/uL (4.0-5.2); WHITE BLOOD COUNT (AUTO) 2.9 K/uL (4.3-11.0)
[2021-04-16 06:39] LABS: CALCIUM, SERUM 8.6 mg/dL (8.5-10.1); CREATININE 0.8 mg/dL (0.6-1.3); MAGNESIUM 2.2 mg/dL (1.8-2.4); PHOSPHORUS 4.2 mg/dL (2.5-4.9); POTASSIUM 3.7 mmol/L (3.5-5.1)
--- NOTE | 2021-04-16 07:30 | NUR ---
MS RN NOTES PATIENT IN BED, AWAKE AND VERBALLY RESPONSIVE, A/O X4, NOT IN DISTRESS, ON ROOM AIR, NO SOB NOTED. IV ACCESS ON L WRIST #20 INTACT WITH HEPARIN DRIP AT 750 UNITS/HR, NO S/SX OF BLEEDING. R WRIST #22 G AND KADEN MIDLINE INTACT AND PATENT. WITH COMPLAINTS OF PAIN AT RATE 9 OUT OF 10, PAIN MEDICATION WAS GIVEN. SAFETY MEASURES IN PLACED. BED IN LOWEST LOCKED POSITION. WILL CONTINUE TO MONITOR.
[2021-04-16 08:00] VITALS: BP 107/57
[2021-04-16] MEDS: PANTOPRAZOLE 40 MG TABLET.DR PO SCH (09:54)
--- NOTE | 2021-04-16 12:58 | NUR ---
RN MS NOTES PT IN BED, AWAKE, ALERT AND ORIENTED, PAIN MEDS GIVEN ORDERED, PT ABLE TO AMBULATE TO THE BATHROOM WITH STEADY GAIT, PT SEEN BY DR. JOHANSEN, PLAN OF CARE DISCUSSED WITH PT, VERBALIZED UNDERSTANDING BUT STATED THAT SHE WOULD LIKE TO LEAVE AGAINST MEDICAL ADVICE AND DOES NOT WANT TO WAIT ANY LONGER FOR THE BIOPSY, PER RADIOLOGY, BIOPSY IS TENTATIVELY SCHEDULED AT 1330 IF THEY CAN GET A NURSE TO ASSIST, PT INFORMED BUT DOES NOT WANT TO WAIT, ANIL [place] SUPERVISOR CAME AND SPOKE WITH PT, DR. JADE ALSO ON SPEAKER PHONE TO TALK WITH PT, CONVINCED PT TO STAY AND TO HAVE THE LIVER BIOPSY BUT PT STATED THAT SHE WOULD REALLY WANT TO LEAVE NOW AND THAT HER SON IS PICKING HER UP, DR. JOHANSEN INFORMED, INSTRUCTED PT TO SEE HER PRIMARY CARE PHYSICIAN AND ONCOLOGIST PAULA AND TO GO TO THE EMERGENCY ROOM IN CASE OF EMERGENCY, PT VERBALIZED UNDERSTANDING, PT SIGNED AMA FORM AND BELONGINGS SHEET.
--- NOTE | 2021-04-16 13:30 | NUR ---
RN MS NOTES PT PICKED UP BY SON, ASSISTED TO HOSPITAL LOBBY VIA WHEELCHAIR, LEFT VIA PRIVATE CAR IN STABLE CONDITION.
== END 2021-04-16 13:25 | disposition left against medical advice (07) | DRG 281 ==
LOC: ER 03:28 → MED 09:33
PROVIDERS: ATTEND Registered Nurse
PROC: 05H933Z Insertion of Infusion Device into Right Brachial Vein, Percutaneous Approach (ICD-10-PCS; principal; 2021-04-13)
DX: C22.9 Malignant neoplasm of liver, not specified as primary or secondary (principal); K55.059 Acute (reversible) ischemia of intestine, part and extent unspecified; I81 Portal vein thrombosis; D61.818 Other pancytopenia; C78.00 Secondary malignant neoplasm of unspecified lung; D68.9 Coagulation defect, unspecified; K76.6 Portal hypertension; D69.6 Thrombocytopenia, unspecified; K74.60 Unspecified cirrhosis of liver; Z20.822 Contact with and (suspected) exposure to COVID-19; B19.20 Unspecified viral hepatitis C without hepatic coma; Z88.0 Allergy status to penicillin; Z88.8 Allergy status to other drugs, medicaments and biological substances; D72.819 Decreased white blood cell count, unspecified; I70.0 Atherosclerosis of aorta
CPT/HCPCS: 36415; 71260-TC; 72197-TC; 74160-TC; 74183-TC; 76705-TC; 80048-TC; 80053-TC; 80061-TC; 80076-TC; 81001; 82105; 82140-TC; 82378; 82728-TC; 82784; 83540-TC; 83605-TC; 83690-TC; 83735-TC; 84100-TC; 84155; 84165; 84443-TC; 85025-TC; 85300; 85301; 85303; 85610-TC; 85613; 85670; 85705; 85730-TC; 85732; 86140-TC; 86301; 86334; 86431-TC; 86706; 86803; 87081-TC; 87340; 93970-TC; A9575; C9803; G0378; J1644; J2270; J2405; J2765; J3480; J7030; J7050; Q9967

== ENCOUNTER 2021-08-04 23:23 | Inpatient (IN) | payer OTHER ==
[~2021-08-04] VITALS: Ht 160 cm; Wt 87.5 kg
--- NOTE | 2021-08-04 23:45 | NUR ---
PATIENT [id number] C/O LEFT LEG PAIN X1DAY WITH BILATERAL LEG EDEMA. PATIENT ALERT AND ORIETNED X4. PATIENT BROUGHT IN BY STRETCHER STATES WITH THE LEG PAIN SHE CANNOT WALK. PRESENTS WITH NON LABORED SPONTANEOUS BREATHING.
[2021-08-04] MEDS ORDERED: ONDA4TAB5 PO (23:47)
[2021-08-04] MEDS ORDERED: PANT40TA49 PO (23:47)
[2021-08-04] MEDS ORDERED: METH4TAB3 PO (23:47)
[2021-08-04] MEDS ORDERED: DOXY100C2 PO (23:47)
[2021-08-04] MEDS ORDERED: ONDANSETRON HCL/PF 4 MG/2 ML VIAL ONE (23:53)
[2021-08-04] MEDS ORDERED: MORPHINE SULFATE INJ 4 MG/ML DISP.SYRIN ONE (23:53)
[2021-08-05] MEDS ORDERED: ONDANSETRON HCL/PF 4 MG/2 ML VIAL IVP ONE
[2021-08-05] MEDS ORDERED: IV NS 0.9% 500 ML BAG IV ONE
[2021-08-05] MEDS ORDERED: MORPHINE SULFATE INJ 2 MG/ML DISP.SYRIN IV ONE
[2021-08-05] MEDS ORDERED: IOHEXOL-350 100 ML VIAL IV ONE ×2 (00:25→09:56)
[2021-08-05] MEDS ORDERED: IV NS 0.9% 250 ML IV ONE ×2 (00:26→09:56)
[2021-08-05] MEDS ORDERED: CT SWABBABLE VALVE TRANS SET 1 EA INFUS.SET MC ONE ×2 (00:26→09:56)
[2021-08-05 00:51] LABS: BASOPHILS % (AUTO) 0.4 % (0.0-2.0); EOSINOPHILS % (AUTO) 1.9 % (0.0-6.0); HEMATOCRIT 39 % (33-45); HEMOGLOBIN 12.4 g/dL (11.5-14.8); LYMPHOCYTES # (AUTO) 1.6 K/uL (0.8-4.8); LYMPHOCYTES % (AUTO) 30.5 % (20.0-44.0); MEAN CORPUSCULAR HGB CONC 32 g/dl (31.0-36.0); MEAN CORPUSCULAR VOLUME 81 fL (82-100); MONOCYTES # (AUTO) 0.5 K/uL (0.1-1.30); NEUTROPHILS % (AUTO) 58.2 % (43.0-81.0); PLATELET COUNT (AUTO) 108 K/uL (150-450); RED BLOOD CELL COUNT(AUTO) 4.77 MIL/uL (4.0-5.2); WHITE BLOOD COUNT (AUTO) 5.2 K/uL (4.3-11.0)
[2021-08-05 01:03] LABS: ALBUMIN 3.4 g/dL (3.4-5.0); BILIRUBIN,DIRECT 1.5 mg/dL (0.0-0.2); CALCIUM, SERUM 8.5 mg/dL (8.5-10.1); POTASSIUM 3.7 mmol/L (3.5-5.1); TOTAL PROTEIN, SERUM 7.6 g/dL (6.4-8.2)
--- NOTE | 2021-08-05 03:01 | NUR ---
GOING TO CT
--- NOTE | 2021-08-05 04:00 | NUR ---
PATIENT BACK FROM CT, IV ACCESS BLEW UNABLE TO GET CT.
--- NOTE | 2021-08-05 04:15 | NUR ---
UNABLE TO START ANOTHER IV LINE
[2021-08-05] MEDS ORDERED: MORPHINE SULFATE INJ 4 MG/ML DISP.SYRIN ONE (04:26)
[2021-08-05] MEDS ORDERED: MORPHINE SULFATE INJ 4 MG/ML DISP.SYRIN IM ONE (04:30)
[2021-08-05 06:32] LABS: BAND % (MANUAL) 2 % (0.0-5.0); EOSINOPHILS % (MANUAL) 2 % (0-4); LYMPHOCYTES % (MANUAL) 12 % (16-48); MONOCYTES % (MANUAL) 11 % (0-11.0); NEUTROPHILS % (MANUAL) 73 (42-76)
--- NOTE | 2021-08-05 08:40 | NUR ---
MID LINE NURSE AT BEDSIDE,
[2021-08-05] MEDS ORDERED: ONDANSETRON HCL/PF 4 MG/2 ML VIAL ONE (09:03)
[2021-08-05] MEDS ORDERED: HYDROMORPHONE 1 MG/1 ML DISP.SYRIN ONE (09:04)
[2021-08-05] MEDS ORDERED: ONDANSETRON HCL/PF - ER 4 MG/2 ML VIAL IV ONE (09:30)
[2021-08-05] MEDS ORDERED: HYDROMORPHONE 1 MG/1 ML DISP.SYRIN IV ONE (09:30)
[2021-08-05] MEDS ORDERED: HYDROCODONE/APAP 10/325MG TABLET ONE (12:13)
--- NOTE | 2021-08-05 12:20 | NUR ---
COVID RAPID SWAB COLLECTED AND SENT TO LAB
[2021-08-05] MEDS ORDERED: HYDROCODONE/APAP 10/325MG TABLET PO ONE (12:30)
--- NOTE | 2021-08-05 12:53 | NUR ---
PER ADRIANNE OF [facility], PT IS OKAY TO STAY FOR OBSERVATION. FAX CLINICALS TO [phone]. FLORENCIO OF ADMITTING INFORMED AND WILL FAX CLINICALS
[2021-08-05] MEDS ORDERED: MAG HYDROX/AL HYDROX/SIMETH 30 ML UDC PO PRN (13:30)
[2021-08-05] MEDS ORDERED: MAGNESIUM HYDROXIDE 30 ML UDC PO PRN (13:30)
[2021-08-05] MEDS ORDERED: ACETAMINOPHEN 325 MG TABLET PO PRN (13:30)
[2021-08-05] MEDS ORDERED: Z GUARD REMEDY 2 OZ OINT TP PRN (13:30)
--- NOTE | 2021-08-05 13:56 | NUR ---
ROOM 309-2
--- NOTE | 2021-08-05 14:40 | NUR ---
REPORT GIVEN TO BARBARA Lozano RN FOR DOMINIQUE
--- NOTE | 2021-08-05 14:55 | NUR ---
PT TRANSFERRED TO 309 VIA HOSPITAL PROTOCOL. ALL BELONGINGS WITH PT. VSS
--- NOTE | 2021-08-05 15:00 | NUR ---
SPECIALIZED DEVELOPER NOTE RECEIVED PATIENT VIA [facility]. PATIENT IS A/O X4. PATIENT IS BREATHING EVENLY AND NONLABORED ON ROOM AIR. NO SIGNS OF DISTRESS NOTED. VITALS BP 145/96, HR105, TEMP 97.7, RR 18, O2 SAT 100%. PATIENT COMPLAINED OF NAUSEA AND PAIN. WILL GIVE PRN MEDICATIONS ORDERED. IV ACCESS TO LEFT UPPER ARM MIDLINE. ABDOMEN SOFT NONTENDER. SKIN C/D/I, EDEMA NOTED ON B LOWER EXTREMITY +3.PATIENTS BELONGINGS ACCOUNTED FOR. PATIENT WAS ORIENTED TO THE ROOM AND HOW TO USE THE CALL LIGHT. SAFETY MEASURES IN PLACE BED LOW LOCKED AND CALL LIGHT WITHIN REACH, WILL CONTINUE TO MONITOR
[2021-08-05] MEDS: ONDANSETRON HCL/PF 4 MG/2 ML VIAL IVP PRN (15:06)
[2021-08-05] MEDS: HYDROMORPHONE INJ 2 MG/ML DISP.SYRIN IV PRN ×2 (15:14→20:04)
--- NOTE | 2021-08-05 18:35 | NUR ---
MS RN CLOSING NOTE PATIENT RESTING IN BED. PATIENT IS A/O X4. PATIENT IS BREATHING EVENLY AND NONLABORED ON ROOM AIR. NO SIGNS OF DISTRESS NOTED. DENIES PAIN OR DISCOMFORT AT THIS TIME. IV ACCESS TO LEFT UPPER ARM MIDLINE PATENT AND INTACT RUNNING NS @ 75 ML/HR. ALL MEDICATIONS GIVEN ORDERED. SAFETY MEASURES IN PLACE BED LOW LOCKED AND CALL LIGHT WITHIN REACH, BED ALARM ON. WILL ENDORSE TO ONCOMING SHIFT
[2021-08-05 20:00] VITALS: BP 158/108
--- NOTE | 2021-08-05 20:43 | NUR ---
MS RN OPENING NOTES: RECEIVED PATIENT AWAKE IN BED, BED IN LOW POSITION, CALL LIGHTS WITHIN REACH, ON PAIN MANAGEMENT, PATIENT IS A/OX4 ABLE TO EXPRESS NEEDS,ON RA NO SOB NOTED, WITH SHAREE MIDLINE WITH ONGOING NSS@75ML PER HOUR INFUSING WELL, PATIENT KEPT CLEAN AND DRY, PLACE COMFORTABLY IN BED ALL NEEDS MET, WILL CONTINUE TO MONITOR.
[2021-08-06] MEDS: HYDROMORPHONE INJ 2 MG/ML DISP.SYRIN IV PRN ×6 (01:07→21:47)
[2021-08-06] MEDS: IV NS 0.9% 1,000 ML IV PRN (05:42)
--- NOTE | 2021-08-06 06:58 | NUR ---
MS RN CLOSING NOTES: PATIENT SLEEP IN BED COMFORTABLY, BED IN LOW POSITION, CALL LIGHTS WITHIN REACH, ON PAIN MANAGEMENT, NO COMPLAIN OF PAIN AND DISCOMFORT AT THIS TIME, PATIENT IS A/X4 ABLE TO EXPRESS NEEDS, WITH SHAREE MIDLINE WITH ONGOING NSS @75ML/HR INFUSING WELL, PATIENT KEPT CLEAN AND DRY, ALL NEEDS MET, ENDORSE TO INCOMING SHIFT.
[2021-08-06 07:06] LABS: CALCIUM, SERUM 8.8 mg/dL (8.5-10.1); PHOSPHORUS 4.2 mg/dL (2.5-4.9); POTASSIUM 3.8 mmol/L (3.5-5.1)
--- NOTE | 2021-08-06 07:30 | NUR ---
RN MS NOTES PT IN BED, AWAKE, ALERT AND VERBALLY RESPONSIVE, NO COMPLAINTS AT THIS TIME, RESPIRATIONS NORMAL, CALL LIGHT WITHIN REACH.
[2021-08-06 07:31] LABS: BASOPHILS % (AUTO) 1.1 % (0.0-2.0); EOSINOPHILS % (AUTO) 4.9 % (0.0-6.0); HEMATOCRIT 37 % (33-45); HEMOGLOBIN 11.7 g/dL (11.5-14.8); LYMPHOCYTES # (AUTO) 0.7 K/uL (0.8-4.8); LYMPHOCYTES % (AUTO) 17.6 % (20.0-44.0); MEAN CORPUSCULAR HGB CONC 32 g/dl (31.0-36.0); MEAN CORPUSCULAR VOLUME 82 fL (82-100); MONOCYTES # (AUTO) 0.4 K/uL (0.1-1.30); MONOCYTES % (AUTO) 10.4 % (2.0-12.0); NEUTROPHILS # (AUTO) 2.6 K/uL (1.8-8.9); PLATELET COUNT (AUTO) 96 K/uL (150-450); RED BLOOD CELL COUNT(AUTO) 4.55 MIL/uL (4.0-5.2); WHITE BLOOD COUNT (AUTO) 3.9 K/uL (4.3-11.0)
[2021-08-06 08:00] VITALS: BP 140/90
--- NOTE | 2021-08-06 08:48 | NUR ---
RN MS NOTES RECEIVED ORDER FROM DR. LANZA TO INCREASE DILAUDID TO 2MG Q4H PRN, NOTED AND CARRIED OUT.
[2021-08-06 09:59] LABS: BAND % (MANUAL) 1 % (0.0-5.0); EOSINOPHILS % (MANUAL) 5 % (0-4); LYMPHOCYTES % (MANUAL) 19 % (16-48); MONOCYTES % (MANUAL) 7 % (0-11.0); NEUTROPHILS % (MANUAL) 68 (42-76)
[2021-08-06] MEDS ORDERED: NALOXONE HCL 0.4 MG/ML AMPUL IV PRN (10:00)
[2021-08-06] MEDS: oxyCODONE HCL SR 20MG TAB.SR.12H PO SCH ×2 (10:56→22:32)
[2021-08-06] MEDS: ENSURE ENLIVE 237 ML LIQUID (VANILLA) PO SCH ×2 (10:59→12:51)
[2021-08-06 11:05] LABS: THYROID STIMULATING HORMONE 4.425 uIU/mL (0.358-3.74)
[2021-08-06] MEDS: ENOXAPARIN SODIUM 40 MG/0.4 ML DISP.SYRIN SQ SCH (12:50)
--- NOTE | 2021-08-06 13:00 | NUR ---
RN MS NOTES PT IN BED, RESTING, PAIN MEDICATION GIVEN FOR PAIN MANAGEMENT, NOT IN DISTRESS, PT SEEN BY COATING MIXER ANIL, PLAN OF CARE DISCUSSED WITH PT, CALL LIGHT WITHIN REACH, KEPT WARM AND COMFORTABLE IN BED.
[2021-08-06 16:00] VITALS: BP 148/105
--- NOTE | 2021-08-06 18:13 | NUR ---
RN MS NOTES PT IN BED, RESTING, PAIN MEDS GIVEN ORDERED FOR PAIN MANAGEMENT, ASSISTED IN REPOSITIONING, IV FLUIDS INFUSING WELL, PM CARE PROVIDED, VISITED BY FAMILY, KEPT CLEAN, DRY AND COMFORTABLE, ALL NEEDS ATTENDED.
--- NOTE | 2021-08-06 19:20 | NUR ---
MS RN OPENING NOTES: RECEIVED PATIENT IN BED, AWAKE, A/O X4. NO S/S OF DISTRESS NOTED. NO COMPLAIN OF PAIN. CALL LIGHT WITHIN REACH. BED ALARM ON. BED IN LOWEST AND LOCKED POSITION. HOB ELEVATED AT ALL TIMES. FAMILY MEMBER AT THE BEDSIDE. ADVISED PT NOT TO USE THE ELECTRICAL WARMING TOWEL FROM HOME UNTIL IT'S BEING CHECKED BY THE BIOMED, PATIENT VERBALIZED UNDERSTANDING, UNPLUGGED IT AND PLACED WITH PATIENT'S BELONGING AT BEDSIDE.
[2021-08-06 20:00] VITALS: BP 137/84
[2021-08-07] MEDS: HYDROMORPHONE INJ 2 MG/ML DISP.SYRIN IV PRN ×5 (02:35→19:24)
[2021-08-07] MEDS: IV NS 0.9% 1,000 ML IV PRN (02:37)
[2021-08-07 05:07] LABS: IMMUNOGLOBULIN A, SERUM 239 mg/dL (87-352); IMMUNOGLOBULIN G, SERUM 1843 mg/dL (586-1602); IMMUNOGLOBULIN M, SERUM 158 mg/dL (26-217)
--- NOTE | 2021-08-07 05:49 | NUR ---
TEXTED DR. TORRES FOR MRI APPROVAL.
[2021-08-07 06:42] LABS: ALBUMIN 2.9 g/dL (3.4-5.0); BILIRUBIN,DIRECT 1.4 mg/dL (0.0-0.2); BILIRUBIN,TOTAL 2.7 mg/dL (0.2-1.0); CALCIUM, SERUM 8.3 mg/dL (8.5-10.1); CREATININE 0.9 mg/dL (0.6-1.3); MAGNESIUM 1.9 mg/dL (1.8-2.4); PHOSPHORUS 3.8 mg/dL (2.5-4.9); TOTAL PROTEIN, SERUM 6.6 g/dL (6.4-8.2)
[2021-08-07 06:51] LABS: BASOPHILS % (AUTO) 1.1 % (0.0-2.0); EOSINOPHILS % (AUTO) 4.7 % (0.0-6.0); HEMATOCRIT 36 % (33-45); HEMOGLOBIN 11.4 g/dL (11.5-14.8); LYMPHOCYTES % (AUTO) 27.3 % (20.0-44.0); MEAN CORPUSCULAR HGB CONC 32 g/dl (31.0-36.0); MEAN CORPUSCULAR VOLUME 82 fL (82-100); MONOCYTES # (AUTO) 0.3 K/uL (0.1-1.30); MONOCYTES % (AUTO) 7.1 % (2.0-12.0); NEUTROPHILS # (AUTO) 2.2 K/uL (1.8-8.9); NEUTROPHILS % (AUTO) 59.8 % (43.0-81.0); PLATELET COUNT (AUTO) 86 K/uL (150-450); RED BLOOD CELL COUNT(AUTO) 4.38 MIL/uL (4.0-5.2); WHITE BLOOD COUNT (AUTO) 3.8 K/uL (4.3-11.0)
--- NOTE | 2021-08-07 07:13 | NUR ---
MS RN OPENING NOTES: RECEIVED PATIENT IN ASLEEP BUT EASILY AROUSABLE. BED, A/O X4. NO S/S OF DISTRESS NOTED. NO COMPLAIN OF PAIN. ON PAIN MANAGEMENT. WITH IV ACCESS ON SHAREE MIDLINE WITH NS RUNNING AT 75ML/HR INFUSING WELL. CALL LIGHT WITHIN REACH. BED ALARM ON. BED IN LOWEST AND LOCKED POSITION. HOB ELEVATED AT ALL TIMES. WILL CONTINUE TO MONITOR PATIENT.
[2021-08-07 08:00] VITALS: BP 143/79
[2021-08-07] MEDS: ENSURE ENLIVE 237 ML LIQUID (VANILLA) PO SCH ×2 (08:58→13:04)
[2021-08-07] MEDS: oxyCODONE HCL SR 20MG TAB.SR.12H PO SCH (08:59)
[2021-08-07] MEDS: ENOXAPARIN SODIUM 40 MG/0.4 ML DISP.SYRIN SQ SCH (09:01)
[2021-08-07 09:50] LABS: BAND % (MANUAL) 1 % (0.0-5.0); EOSINOPHILS % (MANUAL) 7 % (0-4); LYMPHOCYTES % (MANUAL) 21 % (16-48); MONOCYTES % (MANUAL) 5 % (0-11.0); NEUTROPHILS % (MANUAL) 66 (42-76)
[2021-08-07] MEDS: FERROUS SULFATE (325 MG) 325 MG/TAB TABLET PO SCH (10:17)
[2021-08-07] MEDS ORDERED: FENTANYL TD PATCH (50 MCG/HR) 50 MCG/HR PATCH.TD72 TD SCH (12:00)
--- NOTE | 2021-08-07 12:38 | NUR ---
MS RN NOTE PATIENT WITH HEPATOCELLULAR CA WITH POSSIBLE METASTASES. PAIN UNRELIEVED WITH OXY AND DILAUDID COMBINATION. PATIENT WAS SEEN BY DR. LUGO WITH ORDER TO D/C OXY AND START PATIENT ON FENTANYL. PATIENT STILL IN PAIN. VITAL SIGNS MONITORED AND IS WNL. STARTED PATIENT ON FENTANYL PATCH AT AROUND 1220H ORDERED. HEALTH TEACHING DONE REGARDING FENTANYL USE. VERBALIZED UNDERSTANDING AND APPRECIATION. IN STABLE CONDITION.
[2021-08-07 16:00] VITALS: BP 113/84
--- NOTE | 2021-08-07 19:10 | NUR ---
MS RN CLOSING NOTES: PATIENT IN [place] ON BED, A/O X4. NO S/S OF DISTRESS NOTED. ON PAIN MANAGEMENT. WITH IV ACCESS ON SHAREE MIDLINE ON SALINE LOCK PATENT AND INTACT. PATIENT FINISHED HER MRI PROCEDURE, TOLERATED WELL. CALL LIGHT WITHIN REACH. BED ALARM ON. BED IN LOWEST AND LOCKED POSITION. HOB ELEVATED AT ALL TIMES. WILL ENDORSE PATIENT FOR CONTINUITY OF CARE.
[2021-08-07 20:00] VITALS: BP 133/95
[2021-08-08] MEDS: HYDROMORPHONE INJ 2 MG/ML DISP.SYRIN IV PRN ×6 (00:08→21:22)
--- NOTE | 2021-08-08 07:30 | NUR ---
MS RN OPENING NOTES: RECEIVED PATIENT IN BED AWAKE . A/O X4. NO S/S OF DISTRESS NOTED. NO COMPLAIN OF PAIN. ON PAIN MANAGEMENT. WITH IV ACCESS ON SHAREE MIDLINE . INTACT AND PATENT.NO SOB NOTED. NO RESPIRATORY DISTRESS NOTED. CALL LIGHT WITHIN REACH. BED ALARM ON. BED IN LOWEST AND LOCKED POSITION. HOB ELEVATED AT ALL TIMES. BILATHERAL UPPER ARM BRUISE NOTED. PREVIOUS SHIFT NURSE NOTED FOR WOUND CONSULT.WILL CONTINUE TO MONITOR PATIENT.
[2021-08-08 08:00] VITALS: BP 116/82
[2021-08-08] MEDS: ENSURE ENLIVE 237 ML LIQUID (VANILLA) PO SCH ×2 (08:04→17:23)
[2021-08-08] MEDS: FERROUS SULFATE (325 MG) 325 MG/TAB TABLET PO SCH (08:38)
[2021-08-08] MEDS: ENOXAPARIN SODIUM 40 MG/0.4 ML DISP.SYRIN SQ SCH (08:39)
[2021-08-08] MEDS: HYDROCODONE/APAP 5/325MG TABLET PO PRN ×4 (08:43→16:50)
--- NOTE | 2021-08-08 09:00 | NUR ---
MS RN NOTES PATIENT REFUSED NORCO,SHE STATED IT WILL NOT HELP. OFFERED NORCO SINCE THE DILAUDID MEDICATION ADMINISTRATION TIME WAS NOT YET.
[2021-08-08 16:00] VITALS: BP 139/77
--- NOTE | 2021-08-08 18:30 | NUR ---
MS RN CLOSING NOTES: PATIENT IN BED AWAKE . A/O X4. NO S/S OF DISTRESS NOTED. NO COMPLAIN OF PAIN. ON PAIN MANAGEMENT. WITH IV ACCESS ON SHAREE MIDLINE . INTACT AND PATENT.NO SOB NOTED. NO RESPIRATORY DISTRESS NOTED. ALL DUE MEDS GIVEN ORDERED. DAUGHTER IN LAW AND DR JADE VISITED THE PATIENT.CALL LIGHT WITHIN REACH. BED ALARM ON. BED IN LOWEST AND LOCKED POSITION. HOB ELEVATED AT ALL TIMES. BILATHERAL UPPER ARM BRUISE NOTED. PREVIOUS SHIFT NURSE NOTED FOR WOUND CONSULT.WILL ENDORSE NEXT SHIFT FOR DOMINIQUE.
--- NOTE | 2021-08-08 19:30 | NUR ---
MS RN NOTES RECEIVED ON BED A/O X4,BREATHING EASY,NO SOB,WITH LEFT UPPER ARM MIDLINE FOR MEDS.INCONTINENT OF URINE,,NOTED SKIN REDNESS,BRUISING ON BOTH ARMS./CO GENERALIZED PAIN,WILL MEDICATE.CALL LIGHT IN REACH,NEEDS ANTICIPATED.
[2021-08-08 20:00] VITALS: BP 141/90
--- NOTE | 2021-08-08 21:22 | NUR ---
MS RN NOTES PAIN MANAGEMENT C/O GENERALIZED PAIN,8/10 ON PAIN SCALE,DILAUDID 2MG IV GIVEN PER PATIENT REQUEST
--- NOTE | 2021-08-09 | NUR ---
MS RN NOTES SLEEPING THIS TIME
[2021-08-09] MEDS: HYDROMORPHONE INJ 2 MG/ML DISP.SYRIN IV PRN ×6 (02:19→23:31)
--- NOTE | 2021-08-09 02:19 | NUR ---
MS RN NOTES PAIN MANAGEMENT AWAKE IN PAIN,DILAUDID 2 MG IV GIVEN PER PATIENT REQUEST.
[2021-08-09 07:05] LABS: BASOPHILS % (AUTO) 1.1 % (0.0-2.0); EOSINOPHILS % (AUTO) 2.8 % (0.0-6.0); HEMATOCRIT 39 % (33-45); HEMOGLOBIN 12.1 g/dL (11.5-14.8); LYMPHOCYTES # (AUTO) 1.1 K/uL (0.8-4.8); LYMPHOCYTES % (AUTO) 28.4 % (20.0-44.0); MEAN CORPUSCULAR HGB CONC 31 g/dl (31.0-36.0); MEAN CORPUSCULAR VOLUME 83 fL (82-100); MONOCYTES # (AUTO) 0.4 K/uL (0.1-1.30); MONOCYTES % (AUTO) 9.9 % (2.0-12.0); NEUTROPHILS # (AUTO) 2.2 K/uL (1.8-8.9); NEUTROPHILS % (AUTO) 57.8 % (43.0-81.0); PLATELET COUNT (AUTO) 72 K/uL (150-450); RED BLOOD CELL COUNT(AUTO) 4.67 MIL/uL (4.0-5.2); WHITE BLOOD COUNT (AUTO) 3.8 K/uL (4.3-11.0)
[2021-08-09 07:06] LABS: *SPE A/G RATIO 0.9 (0.7-1.7); *SPE ALPHA-1-GLOBULIN 0.3 g/dL (0.0-0.4); *SPE ALPHA-2-GLOBULIN 0.4 g/dL (0.4-1.0); *SPE M-SPIKE Not Observed g/dL (Not Observed)
[2021-08-09 07:27] LABS: CALCIUM, SERUM 8.4 mg/dL (8.5-10.1); CREATININE 0.8 mg/dL (0.6-1.3); POTASSIUM 3.8 mmol/L (3.5-5.1)
[2021-08-09] MEDS: ENSURE ENLIVE 237 ML LIQUID (VANILLA) PO SCH ×2 (08:00→13:00)
[2021-08-09 08:06] VITALS: BP 100/80
[2021-08-09] MEDS: FERROUS SULFATE (325 MG) 325 MG/TAB TABLET PO SCH (08:19)
[2021-08-09] MEDS: ENOXAPARIN SODIUM 40 MG/0.4 ML DISP.SYRIN SQ SCH (08:23)
[2021-08-09] MEDS: HYDROCODONE/APAP 5/325MG TABLET PO PRN ×3 (08:27→22:20)
--- NOTE | 2021-08-09 08:50 | NUR ---
m/s foam charger: notes pt to mri via gurney at this time accompanied by tech.
[2021-08-09] MEDS ORDERED: FENTANYL TD PATCH (50 MCG/HR) 50 MCG/HR PATCH.TD72 TD SCH (09:00)
[2021-08-09 09:07] LABS: *ANA ANTI-CENTROMERE B AB <0.2 AI (0.0-0.9); *ANA ANTI-DNA(DS) AB, QN 2 IU/mL (0-9); *ANA ANTI-JO-1 <0.2 AI (0.0-0.9); *ANA ANTICHROMATIN ANTIBODY 0.5 AI (0.0-0.9); *ANA RNP ANTIBODIES 0.3 AI (0.0-0.9); *ANA SJOGREN'S ANTI-SS-A <0.2 AI (0.0-0.9); *ANA SJOGREN'S ANTI-SS-B <0.2 AI (0.0-0.9); *ANAANTI-SCLERODERMA-70 AB <0.2 AI (0.0-0.9); *ANASMITH AB <0.2 AI (0.0-0.9)
--- NOTE | 2021-08-09 10:23 | NUR ---
WOUND CARE CONSULT: PT OFF UNIT AT THIS TIME. DISCUSSED SKIN PROTECTION WITH NURSING STAFF. REVIEWED CHART, NURSING DOCUMENTATION AND PHOTOS WHICH INDICATE DISCOLORATION OF LOWER AND UPPER EXTREMITIES AND DRY ABRASIONS TO UPPER EXTREMITIES, PRESENT ON ADMISSION. MD IN AGREEMENT WITH PLAN OF CARE.
--- NOTE | 2021-08-09 10:36 | NUR ---
m/s awake overnight counselor: notes back from mri to bed at this time.
[2021-08-09] MEDS: FENTANYL PATCH (100 MCG/HR) 100 MCG/HR PATCH.TD72 TD SCH (10:43)
--- NOTE | 2021-08-09 12:18 | NUR ---
m/s motorbike courier: notes c/o 04/20 generalized discomfort. medicated with dilaudid 2mg ivp by rn. will continue to monitor. call light within reach.
--- NOTE | 2021-08-09 12:48 | NUR ---
m/s securities counselor: notes reassess by rn covering, pain at 4/10.
--- NOTE | 2021-08-09 13:05 | NUR ---
m/s clinical staff pharmacist: notes pt sounds asleep. no s/s of resp. distress noted. call light within reach. will continue to monitor.
[2021-08-09] MEDS ORDERED: GADOTERATE MEGLUMINE 10 MMOL/20 ML VIAL IV ONE (15:34)
--- NOTE | 2021-08-09 15:47 | NUR ---
m/s reed repairer: notes mri brain and lumbar spine resulted and layla (nps, oncologist) made aware.
[2021-08-09 15:56] VITALS: BP 147/83
--- NOTE | 2021-08-09 17:30 | NUR ---
m/s workforce development assistant: notes pt dozing on and off. no acute distress noted. needs attended. call light within reach. will continue to monitor.
--- NOTE | 2021-08-09 19:00 | NUR ---
MS RN OPENING NOTE RECEIVED PT IN BED AWAKE, A/O X4, FAMILY AT THE BEDSIDE. PT ON ROOM AIR. PT ABLE TO MAKE NEEDS KNOWN. NO SOB NOTED, NO C/O PAIN AT THIS TIME, NO S/S OF ANY ACUTE DISTRESS NOTED. RESPIRATIONS EVEN AND UNLABORED. IV ACCESS ON LEFT UPPER ARM MIDLINE, INTACT, PATENT AND FLUSHING WELL, FALL AND SAFETY MEASURES IN PLACE AND MAINTAINED AT ALL TIMES. BED ALARM ON, BED IN LOWEST LOCKED POSITION, HOB ELEVATED, SIDE RAILS UP X2. CALL LIGHT AND TABLE WITHIN REACH. WILL CONTINUE WITH PLAN OF CARE.
--- NOTE | 2021-08-09 19:10 | NUR ---
m/s veneer clipper: notes bedside report given to matilda (rn) for continuity of care.
--- NOTE | 2021-08-09 20:16 | NUR ---
PT C/O OF 9/10 GENERALIZED BODY PAIN. PER PT REQUEST DILAUDID 2MG/1ML IV Q3HR PRN ADMINISTERED AT THIS TIME PER ORDER. WILL CONTINUE TO MONITOR.
[2021-08-09 20:18] VITALS: BP 132/77
[2021-08-09 21:37] LABS: BAND % (MANUAL) 3 % (0.0-5.0); EOSINOPHILS % (MANUAL) 2 % (0-4); LYMPHOCYTES % (MANUAL) 15 % (16-48); MONOCYTES % (MANUAL) 9 % (0-11.0); NEUTROPHILS % (MANUAL) 71 (42-76)
--- NOTE | 2021-08-09 22:20 | NUR ---
PT C/O OF 9/10 GENERALIZED BODY PAIN. PER PT REQUEST NORCO 5-325MG PO Q4HR PRN ADMINISTERED AT THIS TIME PER ORDER. WILL CONTINUE TO MONITOR.
--- NOTE | 2021-08-09 23:31 | NUR ---
PT C/O OF 9/10 GENERALIZED BODY PAIN. PER PT REQUEST DILAUDID 2MG/1ML IV Q3HR PRN ADMINISTERED AT THIS TIME PER ORDER. WILL CONTINUE TO MONITOR.
[2021-08-10] MEDS: HYDROMORPHONE INJ 2 MG/ML DISP.SYRIN IV PRN ×6 (05:15→21:51)
--- NOTE | 2021-08-10 06:30 | NUR ---
MS RN CLOSING NOTE PT RESTING COMFORTABLY AT THIS TIME, EASILY AROUSED. PT REMAINED STABLE THROUGHOUT SHIFT. ALL NEEDS, MEDICATIONS, AND CARE ADMNISTERED ANTICIPATED PER ORDER; PAIN CONTROL ADMINISTERED PER ORDER. SAFETY PRECAUTIONS IN PLACE AND MAINTAINED AT ALL TIMES, BED IN LOWEST, LOCKED POSITION, HOB ELEVATED, SIDE RAILS UP X2. CALL LIGHT AND TABLE WITHIN REACH. WILL ENDORSE TO ONCOMING NURSE FOR DOMINIQUE.
[2021-08-10 07:42] LABS: CALCIUM, SERUM 8.8 mg/dL (8.5-10.1); CREATININE 0.6 mg/dL (0.6-1.3); POTASSIUM 3.7 mmol/L (3.5-5.1)
[2021-08-10 07:58] LABS: HEMATOCRIT 38 % (33-45); HEMOGLOBIN 11.8 g/dL (11.5-14.8); MEAN CORPUSCULAR HGB CONC 32 g/dl (31.0-36.0); MEAN CORPUSCULAR VOLUME 82 fL (82-100); PLATELET COUNT (AUTO) 69 K/uL (150-450); RED BLOOD CELL COUNT(AUTO) 4.56 MIL/uL (4.0-5.2); WHITE BLOOD COUNT (AUTO) 3.6 K/uL (4.3-11.0)
[2021-08-10 08:00] VITALS: BP 130/96
[2021-08-10] MEDS: ENSURE ENLIVE 237 ML LIQUID (VANILLA) PO SCH ×2 (08:00→12:26)
[2021-08-10] MEDS: FERROUS SULFATE (325 MG) 325 MG/TAB TABLET PO SCH (09:43)
[2021-08-10] MEDS: ENOXAPARIN SODIUM 40 MG/0.4 ML DISP.SYRIN SQ SCH (09:44)
--- NOTE | 2021-08-10 09:45 | NUR ---
WOUND CARE: PT PRESENTS WITH DRY ABRASIONS TO RT UPPER ARM AND PURPLE DISCOLORATION TO BILATERAL ARMS AND BROWNISH DISCOLORATION TO BILATERAL LEGS, PRESENT ON ADMISSION. RECOMMENDATIONS MADE FOR SKIN PROTECTION. DISCUSSED WITH NURSING STAFF.MD IN AGREEMENT WITH PLAN OF CARE.
[2021-08-10 09:49] LABS: BAND % (MANUAL) 1 % (0.0-5.0); EOSINOPHILS % (MANUAL) 5 % (0-4); LYMPHOCYTES % (MANUAL) 13 % (16-48); MONOCYTES % (MANUAL) 3 % (0-11.0); NEUTROPHILS % (MANUAL) 78 (42-76)
[2021-08-10] MEDS: ONDANSETRON HCL/PF 4 MG/2 ML VIAL IVP PRN (09:56)
[2021-08-10 16:00] VITALS: BP 128/83
--- NOTE | 2021-08-10 18:30 | NUR ---
med. x4 with dilaudid for abd. pain and hip pain,x1 with zofran for nausea.
[2021-08-10 20:00] VITALS: BP 157/94
--- NOTE | 2021-08-10 20:00 | NUR ---
PT C/O OF 05/21 GENERALIZED BODY PAIN. PER PT REQUEST NORCO 5-325MG PO Q4HR PRN ADMINISTERED AT THIS TIME PER ORDER. WILL CONTINUE TO MONITOR. Addendum: 08/10/21 at 2036 by SHUN MENDEZ RN @ 2006. PT C/O OF 05/21 GENERALIZED BODY PAIN. PER PT REQUEST NORCO 5-325MG PO Q4HR PRN ADMINISTERED AT THIS TIME PER ORDER. WILL CONTINUE TO MONITOR.
[2021-08-10] MEDS: HYDROCODONE/APAP 5/325MG TABLET PO PRN (20:07)
--- NOTE | 2021-08-10 21:51 | NUR ---
PT C/O OF 910 GENERALIZED BODY PAIN. PER PT REQUEST DILAUDID 2MG/1ML IV Q3HR PRN ADMINISTERED AT THIS TIME PER ORDER. WILL CONTINUE TO MONITOR
[2021-08-11] MEDS: HYDROMORPHONE INJ 2 MG/ML DISP.SYRIN IV PRN ×5 (03:13→19:47)
--- NOTE | 2021-08-11 03:13 | NUR ---
PT C/O OF 910 GENERALIZED BODY PAIN. PER PT REQUEST DILAUDID 2MG/1ML IV Q3HR PRN ADMINISTERED AT THIS TIME PER ORDER. WILL CONTINUE TO MONITOR
[2021-08-11 05:07] LABS: AFP, TUMOR MARKER Note: ng/mL (0.0-8.3)
[2021-08-11] MEDS: HYDROCODONE/APAP 5/325MG TABLET PO PRN ×2 (05:36→16:19)
--- NOTE | 2021-08-11 05:36 | NUR ---
PT C/O OF 9/10 GENERALIZED BODY PAIN. PER PT REQUEST NORCO 5-325MG PO Q4HR PRN ADMINISTERED AT THIS TIME PER ORDER. WILL CONTINUE TO MONITOR.
--- NOTE | 2021-08-11 06:30 | NUR ---
MS RN CLOSING NOTE PT REMAINED STABLE THROUGHOUT SHIFT. WILL ENDORSE TO ONCOMING RN FOR DOMINIQUE.
[2021-08-11 08:00] VITALS: BP 131/80
[2021-08-11 08:00] LABS: BASOPHILS # (AUTO) 0.1 K/uL (0.0-0.2); BASOPHILS % (AUTO) 1.8 % (0.0-2.0); EOSINOPHILS % (AUTO) 2.7 % (0.0-6.0); HEMATOCRIT 40 % (33-45); HEMOGLOBIN 12.2 g/dL (11.5-14.8); LYMPHOCYTES # (AUTO) 1.1 K/uL (0.8-4.8); LYMPHOCYTES % (AUTO) 29.5 % (20.0-44.0); MEAN CORPUSCULAR HGB CONC 31 g/dl (31.0-36.0); MEAN CORPUSCULAR VOLUME 84 fL (82-100); MONOCYTES # (AUTO) 0.4 K/uL (0.1-1.30); MONOCYTES % (AUTO) 9.7 % (2.0-12.0); NEUTROPHILS # (AUTO) 2.1 K/uL (1.8-8.9); NEUTROPHILS % (AUTO) 56.3 % (43.0-81.0); PLATELET COUNT (AUTO) 59 K/uL (150-450); RED BLOOD CELL COUNT(AUTO) 4.79 MIL/uL (4.0-5.2); WHITE BLOOD COUNT (AUTO) 3.6 K/uL (4.3-11.0)
[2021-08-11 08:19] LABS: CALCIUM, SERUM 8.8 mg/dL (8.5-10.1); CREATININE 0.8 mg/dL (0.6-1.3); MAGNESIUM 2.2 mg/dL (1.8-2.4); POTASSIUM 3.7 mmol/L (3.5-5.1)
[2021-08-11] MEDS: FERROUS SULFATE (325 MG) 325 MG/TAB TABLET PO SCH (10:02)
[2021-08-11] MEDS: ENOXAPARIN SODIUM 40 MG/0.4 ML DISP.SYRIN SQ SCH (10:04)
[2021-08-11] MEDS: ENSURE ENLIVE 237 ML LIQUID (VANILLA) PO SCH ×2 (10:11→13:23)
[2021-08-11 11:36] LABS: BAND % (MANUAL) 1 % (0.0-5.0); EOSINOPHILS % (MANUAL) 1 % (0-4); LYMPHOCYTES % (MANUAL) 24 % (16-48); MONOCYTES % (MANUAL) 11 % (0-11.0); NEUTROPHILS % (MANUAL) 63 (42-76)
[2021-08-11 16:00] VITALS: BP 127/89
--- NOTE | 2021-08-11 18:00 | NUR ---
MEDICATED MULTIPLE TIMES WITH DILAUDID WELL NORCO.
[2021-08-11 20:00] VITALS: BP 118/89
[2021-08-12] MEDS: HYDROMORPHONE INJ 2 MG/ML DISP.SYRIN IV PRN ×5 (01:38→18:14)
--- NOTE | 2021-08-12 04:29 | NUR ---
CLOSING NOTES: ALERT AND ORIENTATED X4 BEGINNING OF THE SHIFT MALE AT HER BEDSIDE AND VISITING AND SMILING MEDICATED WITH DILAUDID X2 THIS 12 HOURS AND EFFECTIVE FOR THE PAIN INCONTINENT URINE KEPT CLEAN AND DRY REPOSITIONED RESP EVEN AND UNLABORED FENTANLY PATCH RIGHT DELTOID
--- NOTE | 2021-08-12 07:30 | NUR ---
MS RN OPENING NOTES: RECEIVED PATIENT IN BED AWAKE . A/O X4. NO S/S OF DISTRESS NOTED. NO COMPLAIN OF PAIN. ON PAIN MANAGEMENT. WITH IV ACCESS ON SHAREE MIDLINE . INTACT AND PATENT.NO SOB NOTED. NO RESPIRATORY DISTRESS NOTED. CALL LIGHT WITHIN REACH. BED ALARM ON. BED IN LOWEST AND LOCKED POSITION. HOB ELEVATED AT ALL TIMES. BILATERAL UPPER ARM BRUISE NOTED .WILL CONTINUE TO MONITOR PATIENT.
[2021-08-12 08:00] VITALS: BP 117/81
[2021-08-12] MEDS: ENSURE ENLIVE 237 ML LIQUID (VANILLA) PO SCH ×2 (08:08→11:43)
[2021-08-12] MEDS: ENOXAPARIN SODIUM 40 MG/0.4 ML DISP.SYRIN SQ SCH (09:00)
[2021-08-12] MEDS: FERROUS SULFATE (325 MG) 325 MG/TAB TABLET PO SCH (09:32)
[2021-08-12] MEDS: FENTANYL PATCH (100 MCG/HR) 100 MCG/HR PATCH.TD72 TD SCH (09:33)
--- NOTE | 2021-08-12 11:10 | NUR ---
RN NOTES HELD LOVENOX PER SENIOR PARTNER LIAT TOMPKINS FOR PLATELET COUNT [id number].
[2021-08-12 16:00] VITALS: BP 140/89
--- NOTE | 2021-08-12 19:34 | NUR ---
MS RN CLOSING NOTES: PATIENT IN BED AWAKE . A/O X4. NO S/S OF DISTRESS NOTED. NO COMPLAIN OF PAIN. ON PAIN MANAGEMENT. WITH IV ACCESS ON SHAREE MIDLINE . INTACT AND PATENT.NO SOB NOTED. NO RESPIRATORY DISTRESS NOTED.ALL DUE MEDS GIVEN. CALL LIGHT WITHIN REACH. BED ALARM ON. BED IN LOWEST AND LOCKED POSITION. HOB ELEVATED AT ALL TIMES. BILATERAL UPPER ARM BRUISE NOTED .PATIENT IS PLANNING TO BE DISCHARGED TO [facility]. PATIENT FIRST REFUSED CALLED DR. LIAT TOMPKINS PATIENT AGREED TO BE DISCHARGED.REPORT GIVEN AT 1938 TO NAS BARBOSA AT THE FACILITY. ENDORSED INCOMING SHIFT FOR DOMINIQUE.
--- NOTE | 2021-08-12 19:43 | NUR ---
in bed alert and orientated x3 [facility] no c/po at this time
== END 2021-08-12 21:12 | DRG 343 ==
LOC: ER 23:32 → MED 08-05 14:24
PROVIDERS: ADMIT Internal Medicine; ATTEND Nurse Practitioner Family
PROC: 05HA33Z Insertion of Infusion Device into Left Brachial Vein, Percutaneous Approach (ICD-10-PCS; principal; 2021-08-05)
PROC: 05H633Z Insertion of Infusion Device into Left Subclavian Vein, Percutaneous Approach (ICD-10-PCS; 2021-08-05)
PROC: B547ZZA Ultrasonography of Left Subclavian Vein, Guidance (ICD-10-PCS; 2021-08-05)
DX: M84.58XA Pathological fracture in neoplastic disease, other specified site, initial encounter for fracture (principal); C78.01 Secondary malignant neoplasm of right lung; C79.51 Secondary malignant neoplasm of bone; I81 Portal vein thrombosis; D61.818 Other pancytopenia; C78.02 Secondary malignant neoplasm of left lung; C22.0 Liver cell carcinoma; D68.8 Other specified coagulation defects; G89.3 Neoplasm related pain (acute) (chronic); D69.59 Other secondary thrombocytopenia; K74.60 Unspecified cirrhosis of liver; G89.4 Chronic pain syndrome; K59.00 Constipation, unspecified; Z79.891 Long term (current) use of opiate analgesic; E80.6 Other disorders of bilirubin metabolism; R16.1 Splenomegaly, not elsewhere classified; Z86.19 Personal history of other infectious and parasitic diseases; Z20.822 Contact with and (suspected) exposure to COVID-19; D50.9 Iron deficiency anemia, unspecified; G93.9 Disorder of brain, unspecified
CPT/HCPCS: 36410; 36415; 70450-TC; 70553-TC; 72156-TC; 72157-TC; 72158-TC; 80048-TC; 80076-TC; 82105; 82728-TC; 82784; 83540-TC; 83735-TC; 84100-TC; 84155; 84165; 84443-TC; 85025-TC; 85610-TC; 85730-TC; 86225; 86235; 86334; 87081-TC; 93970-TC; 97110-TC; 97112-TC; 97530-TC; A9575; C9803; G0378; J1170; J1650; J2270; J2405; J7030; J7050; Q9967

== ENCOUNTER 2021-08-21 00:29 | Emergency (ER) | payer OTHER ==
[~2021-08-21] VITALS: Ht 167.6 cm; Wt 68.0 kg
--- NOTE | 2021-08-21 01:01 | NUR ---
BIBRA FROM [facility]ARE HOME C/O CHRONIC RQ ABDOMINAL PAIN UNRELIEVED BY NORCO HX OF LIVER CA. ALERT ORIENTED X4 BREATHING EVEN AND UNLABORED PLACED ON MONITOR AND ALL V/S STABLE. MD WAS AT THE BEDSIDE FOR EVAL.
[2021-08-21] MEDS ORDERED: HYDROMORPHONE 1 MG/1 ML DISP.SYRIN IV ONE (01:30)
[2021-08-21] MEDS ORDERED: HYDROMORPHONE 1 MG/1 ML DISP.SYRIN ONE (01:42)
[2021-08-21] MEDS ORDERED: IOHEXOL-300 100 ML VIAL IV ONE (02:02)
[2021-08-21] MEDS ORDERED: IV NS 0.9% 250 ML IV ONE (02:02)
[2021-08-21 03:06] LABS: ALBUMIN 2.6 g/dL (3.4-5.0); BILIRUBIN,DIRECT 1.9 mg/dL (0.0-0.2); BILIRUBIN,TOTAL 4.1 mg/dL (0.2-1.0); CALCIUM, SERUM 9.3 mg/dL (8.5-10.1); CREATININE 0.9 mg/dL (0.6-1.3); POTASSIUM 3.9 mmol/L (3.5-5.1); TOTAL PROTEIN, SERUM 7.1 g/dL (6.4-8.2)
--- NOTE | 2021-08-21 03:45 | NUR ---
TAKEN TO RADIOLOGY
[2021-08-21 03:53] LABS: BASOPHILS % (AUTO) 0.8 % (0.0-2.0); EOSINOPHILS % (AUTO) 3.9 % (0.0-6.0); HEMATOCRIT 38 % (33-45); HEMOGLOBIN 12.3 g/dL (11.5-14.8); LYMPHOCYTES # (AUTO) 0.5 K/uL (0.8-4.8); LYMPHOCYTES % (AUTO) 15.3 % (20.0-44.0); MEAN CORPUSCULAR HGB CONC 32 g/dl (31.0-36.0); MEAN CORPUSCULAR VOLUME 82 fL (82-100); MONOCYTES # (AUTO) 0.7 K/uL (0.1-1.30); MONOCYTES % (AUTO) 20.7 % (2.0-12.0); NEUTROPHILS % (AUTO) 59.3 % (43.0-81.0); PLATELET COUNT (AUTO) 63 K/uL (150-450); RED BLOOD CELL COUNT(AUTO) 4.65 MIL/uL (4.0-5.2); WHITE BLOOD COUNT (AUTO) 3.4 K/uL (4.3-11.0)
[2021-08-21] MEDS ORDERED: HYDROMORPHONE INJ 2 MG/ML DISP.SYRIN ONE (04:09)
--- NOTE | 2021-08-21 04:24 | NUR ---
CALLED [facility] TO HAVE IMAGES READ
[2021-08-21] MEDS ORDERED: HYDROMORPHONE INJ 2 MG/ML DISP.SYRIN IV ONE (04:30)
--- NOTE | 2021-08-21 06:00 | NUR ---
Patient does not wish to proceed with medical care recommended by Dr. Mike. Patient given information related to possible complications, up to and including , which could occur as a result of leaving the hospital at this time. Patient verbalizes understanding of risks involved due to leaving against medical advice. Patient has signed AMA form.Pt alert oriented x4 verbalized she had arranged for her neighbor to help her at her apartment. IV line discontinued. assisted via wheelchair to lyft without incident.
[2021-08-21 06:14] VITALS: BP 130/73
[2021-08-21 08:11] LABS: BAND % (MANUAL) 2 % (0.0-5.0); EOSINOPHILS % (MANUAL) 7 % (0-4); LYMPHOCYTES % (MANUAL) 20 % (16-48); METAMYELOCYTES % 1 % (0-0); MONOCYTES % (MANUAL) 15 % (0-11.0); NEUTROPHILS % (MANUAL) 55 (42-76)
== END 2021-08-21 06:16 | disposition left against medical advice (07) ==
LOC: ER 00:34
DX: E80.6 Other disorders of bilirubin metabolism (principal); R10.9 Unspecified abdominal pain; G89.3 Neoplasm related pain (acute) (chronic); F17.200 Nicotine dependence, unspecified, uncomplicated; Z98.890 Other specified postprocedural states; Z88.0 Allergy status to penicillin; Z88.6 Allergy status to analgesic agent
CPT/HCPCS: 36415; 74177; 80048; 80076; 83690; 85007; 85025; 87081; 93971 ×2; 96374; 96376; 99285; J1170 ×2; J7050; Q9967

== ENCOUNTER 2021-08-21 08:29 | Inpatient (IN) | payer OTHER ==
[~2021-08-21] VITALS: Ht 162.6 cm; Wt 83.7 kg
--- NOTE | 2021-08-21 08:41 | NUR ---
DR MINOR AT BEDSIDE
--- NOTE | 2021-08-21 08:43 | NUR ---
To ER bed 9, , from home, c/o chronic abd pain 10/10 pain scale, also complains of back pain, aaox3, breathing even and non labored, seen by
[2021-08-21] MEDS ORDERED: ONDANSETRON HCL/PF 4 MG/2 ML VIAL IVP ONE (09:00)
[2021-08-21] MEDS ORDERED: IV NS 0.9% 1,000 ML BAG IV ONE (09:00)
[2021-08-21] MEDS ORDERED: HYDROMORPHONE INJ 2 MG/ML DISP.SYRIN IV ONE (09:00)
[2021-08-21] MEDS ORDERED: HYDROMORPHONE 1 MG/1 ML DISP.SYRIN ONE (09:08)
[2021-08-21] MEDS ORDERED: ONDANSETRON HCL/PF 4 MG/2 ML VIAL ONE (09:08)
[2021-08-21 09:31] LABS: BASOPHILS % (AUTO) 0.8 % (0.0-2.0); EOSINOPHILS % (AUTO) 1.1 % (0.0-6.0); HEMATOCRIT 39 % (33-45); HEMOGLOBIN 12.3 g/dL (11.5-14.8); LYMPHOCYTES # (AUTO) 0.4 K/uL (0.8-4.8); MEAN CORPUSCULAR HGB CONC 32 g/dl (31.0-36.0); MEAN CORPUSCULAR VOLUME 83 fL (82-100); MONOCYTES # (AUTO) 0.8 K/uL (0.1-1.30); MONOCYTES % (AUTO) 20.8 % (2.0-12.0); NEUTROPHILS # (AUTO) 2.7 K/uL (1.8-8.9); NEUTROPHILS % (AUTO) 68.3 % (43.0-81.0); PLATELET COUNT (AUTO) 62 K/uL (150-450); RED BLOOD CELL COUNT(AUTO) 4.68 MIL/uL (4.0-5.2); WHITE BLOOD COUNT (AUTO) 3.9 K/uL (4.3-11.0)
[2021-08-21 09:40] LABS: CALCIUM, SERUM 8.8 mg/dL (8.5-10.1); POTASSIUM 3.6 mmol/L (3.5-5.1)
[2021-08-21 09:48] LABS: ALBUMIN 2.7 g/dL (3.4-5.0); BILIRUBIN,DIRECT 2.6 mg/dL (0.0-0.2); BILIRUBIN,TOTAL 4.6 mg/dL (0.2-1.0); TOTAL PROTEIN, SERUM 7.1 g/dL (6.4-8.2)
[2021-08-21 10:44] LABS: BAND % (MANUAL) 4 % (0.0-5.0); EOSINOPHILS % (MANUAL) 3 % (0-4); LYMPHOCYTES % (MANUAL) 8 % (16-48); METAMYELOCYTES % 4 % (0-0); MONOCYTES % (MANUAL) 10 % (0-11.0); NEUTROPHILS % (MANUAL) 69 (42-76)
--- NOTE | 2021-08-21 11:15 | NUR ---
need m/s bed. nursing cook house supervisor aware
[2021-08-21] MEDS: FENTANYL PATCH (100 MCG/HR) 100 MCG/HR PATCH.TD72 TD SCH ×2 (12:00→13:43)
--- NOTE | 2021-08-21 12:17 | NUR ---
ROOM [phone]
--- NOTE | 2021-08-21 12:20 | NUR ---
REPORT GIVEN TO JONNY BARBOSA FOR DOMINIQUE
--- NOTE | 2021-08-21 12:48 | NUR ---
fentanyl patch not administered per ermd verbal order, pt has a patch which is dated 08/20/21.
[2021-08-21] MEDS ORDERED: MAG HYDROX/AL HYDROX/SIMETH 30 ML UDC PO PRN (13:00)
[2021-08-21] MEDS ORDERED: ACETAMINOPHEN 325 MG TABLET PO PRN (13:00)
[2021-08-21] MEDS ORDERED: MAGNESIUM HYDROXIDE 30 ML UDC PO PRN (13:00)
[2021-08-21] MEDS ORDERED: ZOLPIDEM TARTRATE 5 MG TABLET PO PRN (13:00)
[2021-08-21] MEDS ORDERED: ONDANSETRON HCL/PF 4 MG/2 ML VIAL IVP PRN (13:00)
[2021-08-21] MEDS ORDERED: Z GUARD REMEDY 2 OZ OINT TP PRN (13:00)
[2021-08-21] MEDS ORDERED: HYDROCODONE/APAP 5/325MG TABLET PO PRN (13:00)
[2021-08-21 13:15] VITALS: BP 147/94
--- NOTE | 2021-08-21 13:15 | NUR ---
RN OPENING NOTES RECEIVED PATIENT VIA [facility] AT 1315. ALERT AND ORIENTED TIMES 4. COMPLAINS OF PAIN. NO SOB NO RESPIRATORY DISTRESS NOTED. IV ACCESS ON THE RIGHT WRIST G# 22 INTACT AND PATENT. BED IN THE LOWEST POSITION AND LOCKED. SIDE RAILS UP TIMES 2, TABLE AND CALL LIGHT WITHIN REACH. WILL CONTINUE TO MONITOR.
[2021-08-21] MEDS: MORPHINE SULFATE INJ 2 MG/ML DISP.SYRIN IV PRN ×3 (14:23→23:19)
[2021-08-21 16:00] VITALS: BP 132/85
--- NOTE | 2021-08-21 18:28 | NUR ---
RN CLOSING NOTES PATIENT RESTING ON THE BED .ALERT AND ORIENTED TIMES 4. NO SOB NO RESPIRATORY DISTRESS NOTED. IV ACCESS ON THE RIGHT WRIST G# 22 INTACT AND PATENT. BED IN THE LOWEST POSITION AND LOCKED. SIDE RAILS UP TIMES 2, TABLE AND CALL LIGHT WITHIN REACH. ALL DUE MEDS GIVEN , WILL ENDORSE INCOMING SHIFT FOR DOMINIQUE.
--- NOTE | 2021-08-21 19:00 | NUR ---
RN NOTES: AT 1904 DURING THE ENDORSEMENT PATIENT IS RESTING, A/OX4, IV CANNULA ON THE RH G#22, SHE JUST RECEIVED HER PAIN MEDICATION, SHE WAS HERE FOR PAIN MANAGEMENT. --NO SOB OR ANY SIGN OF RESPIRATORY DISTRESS, TAKING A NAP IN BETWEEN, AFTER ORIENTED TO UNIT AND STAFF, FALL SAFETY AND SEIZURE PRECAUTION OBSERVED, KEPT CALL LIGHT WITHIN EASY REACH.
[2021-08-21 20:00] VITALS: BP 135/89
[2021-08-21] MEDS: HYDROCODONE/APAP 10/325MG TABLET PO PRN ×2 (21:37→23:28)
--- NOTE | 2021-08-21 21:38 | NUR ---
RN NOTES: COMPLAINED OF SEVERE PAIN SHE WANTS HER INJECTION BUT SHE JUST RECEIVED 2 HOURS AGO, NOT YET DUE, GIVEN OTHER OPTION, ORAL PAIN MDS GIVEN, NON PHARMACOLOGIC INTERVENTION RENDERED.
--- NOTE | 2021-08-21 23:20 | NUR ---
RN NOTES: --CRYING AND YELLING THAT SHE IS STILL IN PAIN, 06/20 THE ORAL MEDICATION DID NOT HELP MUCH, SHE WANTS HER MORPHINE IV.NON PHARMACOLOGIC INTERVENTION RENDERED,GIVEN WARM BLANKET.
--- NOTE | 2021-08-22 01:42 | NUR ---
RN NOTES: -CALLING FOR ANOTHER PAIN MEDICATION, EXPLAINED TO HER ITS NOT YET DUE, SHE IS ASKING FOR THE CN, EXPLAINED TO HER THAT SHE IS ASSISTING ANOTHER RN AT THE MOMENT CHECKING THE OTHER PATIENT. -ENCOURAGE TO SLEEP, REPOSITIONED, GIVEN WATER AND GIVEN WARM BLANKET.KEPT CALL LIGHT WITHIN EASY REACH.
--- NOTE | 2021-08-22 02:21 | NUR ---
RN NOTES: CN NOTIFIED PATIENT WANTS TO TALK TO HER, WHEN SHE CAME TO SEE THE PATIENT SHE WAS ASLEEP.
--- NOTE | 2021-08-22 02:36 | NUR ---
RN NOTES: AWAKE,SHE IS ASKING AGAIN FOR HER PAIN MEDICATION AND SHE LOOKS DROWSY AND SLEEPY, SHE HAD IV AND ORAL PAIN MEDIATION, EXPLAINED TO HER SHE IS NOT YET DUE. -NON PHARMACOLOGIC INTERVENTION RENDERED.
[2021-08-22] MEDS: MORPHINE SULFATE INJ 2 MG/ML DISP.SYRIN IV PRN ×5 (03:24→22:21)
--- NOTE | 2021-08-22 03:25 | NUR ---
RN NOTES: -PATIENT IS CRYING AND SHE SAID SHE FEEL DEPRESSED AND SHE WANTS TO TALK TO THE CHARGE NURSE. -CN/RN/UDAY TALK TO HER. -SHE ASKED FOR HER PAIN MEDICATION, SHE HAS SEVERE PAIN 10/10, SHE KNOWS SHE IS DUE FOR MORPHINE, RN GAVE IT VERY SLOWLY IN THE PRESENCE OF THE CN TALKING TO HER, SHE VERBALIZED SHE FEEL PAIN ON THE SITE, BOTH RN ASSESSED THE SITE, PRESENCE OF BACKFLOW, NO REDNESS, NO SIGN OF INFILTRATION, NO SWELLING, ABLE TO GIVE HALF OF THE DOSE FOLLOWED BY FLUSHING THEN SHE COMPLAINED OF PAIN. -CN EXPLAINED TO HER WILL TRY TO PUT ANOTHER CANNULA ON THE SHAREE, 1 ATTEMPT MADE ON THE LAC, THERE WAS BACKFLOW, BUT WHEN RN TRY TO INSERT SHE SAID "REMOVE REMOVE ITS PAINFUL", RN REMOVE THE CANNULA. --SHE WAS CRYING AND TELLING SHE WANTS THE ORAL PILL AND SHE IS BLAMING THE RN WHY IT WAS NOT GIVEN TO HER, RN EXPLAIN TO HER THAT IT WAS EXPLAINED TO HER AWHILE AGO, NORCO 10/325 IS FOR HER SEVERE PAIN BUT SHE TOOK ALREADY AND SHE IS NOT YET DUE FOR 2ND DOSE. --RN TRIED TO CONVINCE HER THAT HER OTHER LINE IS GOOD AND VERY PATENT WILL TRY TO GIVE THE REMAINING MORPHINE, SHE AGREED ,GIVEN VERY SLOWLY FOR 3 MINUTES AND FOLLOWED BY SALINE FLUSH THIS TIME SHE WAS DIVERTED BY LETTING HER TALK ABOUT HER GRANDCHILDREN. -AFTER THE PAIN MEDS GIVEN, REPOSITIONED, CLEAN AND CHANGE, THEN GIVEN PHONE, SHE CALLED HER PARTNER. Addendum: 08/22/21 at 0614 by RASHEL CONKLIN RN RN NOTES: V/S CHECKED BP-130/85 MN-95 RR-19 T-97.5 [id number].
--- NOTE | 2021-08-22 05:41 | NUR ---
RN NOTES: -STILL AWAKE SHE IS ON THE PHONE MOST OF THE TIME, SHE ASKED FOR BREAKFAST, OFFERED SOME SNACK,SHE DRINK ORANGE JUICE AND EAT PUDDING. -NEEDS ATTENDED.
--- NOTE | 2021-08-22 06:02 | NUR ---
RN NOTES: RN/CODY/UDAY GET PSYCH CONSULT ORDER FROM DR.MONICA KHAN, FOR PATIENTS PERIOD OF CRYING AND FEELING OF BEING DEPRESSED AND ANXIOUS. -ORDER NOTED AND CARRIED OUT.
--- NOTE | 2021-08-22 06:40 | NUR ---
RN NOTES: AWAKE IN BETWEEN AT THIS TIME SHE IS QUIET, NO MORE CRYING, TURNED AND REPOSITION, SHE PEE, CLEAN AND CHANGE, FOR LABS THIS MORNING, FOR PSYCH EVAL, ENDORSED FOR CONTINUITY OF CARE.
--- NOTE | 2021-08-22 07:30 | NUR ---
MS RN OPENING NOTES RECEIVED PATIENT ON BED, RESTING AND A/O X4. ON ROOM AIR BREATHING EVENLY AND UNLABORED. NOT IN DISTRESS. WITH NO COMPLAINTS OF PAIN AT THIS TIME. WITH IV ACCESS AT RIGHT HAND G22, SALINE LOCKED, INTACT AND PATENT. SAFETY MEASURES IN PLACE. CALL LIGHT WITHIN REACH. BED ON LOWEST AND LOCKED POSITION, SIDE RAILS UP X2. WILL CONTINUE TO MONITOR.
[2021-08-22 08:30] LABS: BASOPHILS % (AUTO) 0.5 % (0.0-2.0); EOSINOPHILS % (AUTO) 2.3 % (0.0-6.0); HEMATOCRIT 36 % (33-45); HEMOGLOBIN 11.7 g/dL (11.5-14.8); LYMPHOCYTES # (AUTO) 0.5 K/uL (0.8-4.8); LYMPHOCYTES % (AUTO) 14.3 % (20.0-44.0); MEAN CORPUSCULAR HGB CONC 32 g/dl (31.0-36.0); MEAN CORPUSCULAR VOLUME 83 fL (82-100); MONOCYTES # (AUTO) 0.6 K/uL (0.1-1.30); MONOCYTES % (AUTO) 16.4 % (2.0-12.0); NEUTROPHILS # (AUTO) 2.3 K/uL (1.8-8.9); NEUTROPHILS % (AUTO) 66.5 % (43.0-81.0); PLATELET COUNT (AUTO) 58 K/uL (150-450); RED BLOOD CELL COUNT(AUTO) 4.39 MIL/uL (4.0-5.2); WHITE BLOOD COUNT (AUTO) 3.5 K/uL (4.3-11.0)
[2021-08-22 08:33] LABS: ALBUMIN 2.4 g/dL (3.4-5.0); BILIRUBIN,TOTAL 4.5 mg/dL (0.2-1.0); CALCIUM, SERUM 8.5 mg/dL (8.5-10.1); CREATININE 0.8 mg/dL (0.6-1.3); MAGNESIUM 1.8 mg/dL (1.8-2.4); PHOSPHORUS 4.5 mg/dL (2.5-4.9); POTASSIUM 4.5 mmol/L (3.5-5.1); TOTAL PROTEIN, SERUM 6.8 g/dL (6.4-8.2)
[2021-08-22] MEDS: PANTOPRAZOLE 40 MG TABLET.DR PO SCH (08:52)
[2021-08-22 13:22] LABS: BAND % (MANUAL) 3 % (0.0-5.0); EOSINOPHILS % (MANUAL) 3 % (0-4); LYMPHOCYTES % (MANUAL) 14 % (16-48); MONOCYTES % (MANUAL) 13 % (0-11.0); NEUTROPHILS % (MANUAL) 67 (42-76)
--- NOTE | 2021-08-22 19:15 | NUR ---
MS RN CLOSING NOTES PATIENT ON BED, RESTING AND A/O X4. ON ROOM AIR BREATHING EVENLY AND UNLABORED. NOT IN DISTRESS. WITH NO COMPLAINTS OF PAIN AT THIS TIME. WITH IV ACCESS AT RIGHT HAND G22, SALINE LOCKED, INTACT AND PATENT. DUE MEDS GIVEN. SAFETY MEASURES IN PLACE. CALL LIGHT WITHIN REACH. BED ON LOWEST AND LOCKED POSITION, SIDE RAILS UP X2. WILL ENDORSE TO NEXT SHIFT FOR DOMINIQUE.
--- NOTE | 2021-08-22 19:30 | NUR ---
MS RN OPENING NOTES RECEIVED PATIENT IN BED, EYES CLOSED AND EASILY AROUSABLE. A/O X4. PT STABLE ON ROOM AIR. NO SOB OR S/S OF RESPIRATORY DISTRESS. NO COMPLAINTS OF PAIN AT THIS TIME. IV ACCESS AT RIGHT HAND 22 GAUGE, SALINE LOCKED, INTACT AND PATENT. SAFETY PRECAUTIONS IN PLACE. BED IN LOWEST LOCKED POSITION, HOB ELEVATED, SIDE RAILS UP X2, AND CALL LIGHT AND TABLE WITHIN REACH. WILL CONTINUE TO MONITOR.
[2021-08-22 20:00] VITALS: BP 142/96
[2021-08-22 20:53] VITALS: BP 142/96
--- NOTE | 2021-08-22 22:21 | NUR ---
RN NOTES PT COMPLAINED OF GENERALIZED PAIN 04/20. ADMINISTERED MORPHINE 2 MG IV PRN ORDERED. VSS. WILL CONTINUE TO MONITOR.
[2021-08-23] MEDS: MORPHINE SULFATE INJ 2 MG/ML DISP.SYRIN IV PRN ×4 (02:31→16:23)
--- NOTE | 2021-08-23 02:31 | NUR ---
RN NOTES Complained yoko generalized pain- Morphine 2 mg IV give as ordered, V/S stable
--- NOTE | 2021-08-23 06:23 | NUR ---
MS RN CLOSING NOTES PATIENT IN BED, EYES CLOSED AND EASILY AROUSABLE. A/O X4. PT STABLE ON ROOM AIR. NO SOB OR S/S OF RESPIRATORY DISTRESS. NO COMPLAINTS OF PAIN AT THIS TIME. IV ACCESS AT RIGHT HAND 22 GAUGE, SALINE LOCKED, INTACT AND PATENT. ALL NEEDS MET AT THIS TIME. SAFETY PRECAUTIONS IN PLACE AT ALL TIMES. BED IN LOWEST LOCKED POSITION, HOB ELEVATED, SIDE RAILS UP X2, AND CALL LIGHT AND TABLE WITHIN REACH. WILL ENDORSE TO ONCOMING NURSE FOR DOMINIQUE.
[2021-08-23 07:03] LABS: BASOPHILS % (AUTO) 0.2 % (0.0-2.0); EOSINOPHILS % (AUTO) 4.9 % (0.0-6.0); HEMATOCRIT 35 % (33-45); HEMOGLOBIN 11.4 g/dL (11.5-14.8); LYMPHOCYTES # (AUTO) 0.4 K/uL (0.8-4.8); LYMPHOCYTES % (AUTO) 12.5 % (20.0-44.0); MEAN CORPUSCULAR HGB CONC 33 g/dl (31.0-36.0); MEAN CORPUSCULAR VOLUME 82 fL (82-100); MONOCYTES # (AUTO) 0.7 K/uL (0.1-1.30); NEUTROPHILS # (AUTO) 1.6 K/uL (1.8-8.9); NEUTROPHILS % (AUTO) 57.4 % (43.0-81.0); PLATELET COUNT (AUTO) 54 K/uL (150-450); RED BLOOD CELL COUNT(AUTO) 4.25 MIL/uL (4.0-5.2); WHITE BLOOD COUNT (AUTO) 2.8 K/uL (4.3-11.0)
[2021-08-23 07:15] LABS: ALBUMIN 2.4 g/dL (3.4-5.0); BILIRUBIN,TOTAL 3.9 mg/dL (0.2-1.0); CALCIUM, SERUM 8.4 mg/dL (8.5-10.1); CREATININE 0.9 mg/dL (0.6-1.3); MAGNESIUM 1.9 mg/dL (1.8-2.4); PHOSPHORUS 4.1 mg/dL (2.5-4.9); POTASSIUM 4.1 mmol/L (3.5-5.1); TOTAL PROTEIN, SERUM 6.7 g/dL (6.4-8.2)
--- NOTE | 2021-08-23 07:40 | NUR ---
RN OPENING NOTES RECEIVED PT ON BED. AWAKE AND A/O X4. ABLE TO MAKE NEEDS KNOWN. WITH C/O 10/10 GENERALIZED BODY PAIN, MORPHINE SULFATE 2MG IVP GIVEN ORDERED. WILL MONITOR FOR EFFECTIVENESS. IV ACCESS ON RHAND #22G INTACT AND PATENT. SAFETY MEASURES IN PLACE: BED LOCKED AND IN LOWEST POSITION, SR UP X2, CALL LIGHT PLACED WITHIN EASY REACH. WILL CONTINUE TO MONITOR.
[2021-08-23 08:00] VITALS: BP 142/82
[2021-08-23] MEDS: PANTOPRAZOLE 40 MG TABLET.DR PO SCH (08:03)
[2021-08-23] MEDS ORDERED: SERTRALINE HCL 25 MG TABLET PO SCH (09:00)
--- NOTE | 2021-08-23 12:43 | NUR ---
RN NOTES MORPHINE SULFATE 2MG IVP GIVEN FOR C/O GENERALIZED PAIN. WILL MONITOR FOR EFFECTIVENESS.
[2021-08-23 13:48] LABS: BAND % (MANUAL) 4 % (0.0-5.0); EOSINOPHILS % (MANUAL) 2 % (0-4); LYMPHOCYTES % (MANUAL) 14 % (16-48); MONOCYTES % (MANUAL) 19 % (0-11.0); NEUTROPHILS % (MANUAL) 61 (42-76)
--- NOTE | 2021-08-23 15:51 | NUR ---
RN NOTES RECEIVED CALL FROM [facility] C/O BLANK, PT'S MRSA RIGHT NARES (+). DR. BRENNAN MADE AWARE WITH ORDER FOR BACTROBAN ANJANA X 10 DAYS. CARRIED OUT.
--- NOTE | 2021-08-23 16:30 | NUR ---
CHASER HELPER NOTES PT TRANSFERRED TO [facility], PICKED UP BY AMBULANCE VIA GURNEY. PT REMAINS TO BE AWAKE, A/O X4, IN STABLE CONDITION. REPORT GIVEN TO CHELSEY CORRIGAN REGARDING TRANSFER. PT'S SPOUSE AWARE OF TRANSFER. ALL BELONGINGS ACCOUNTED FOR, FORM SIGNED BY PT. DISCHARGE INSTRUCTIONS PROVIDED TO PT, DISCHARGE PACKET SENT WITH PT. CN AWARE OF DISCHARGE.
[2021-08-23] MEDS ORDERED: MUPIROCIN OINT 2% 22 GM TUBE NS SCH (21:00)
== END 2021-08-23 18:42 | DRG 861 ==
LOC: ER 08:37 → MED 12:27
DX: G89.3 Neoplasm related pain (acute) (chronic) (principal); D61.818 Other pancytopenia; C78.02 Secondary malignant neoplasm of left lung; C78.01 Secondary malignant neoplasm of right lung; C79.51 Secondary malignant neoplasm of bone; C22.0 Liver cell carcinoma; M84.550A Pathological fracture in neoplastic disease, pelvis, initial encounter for fracture; D68.4 Acquired coagulation factor deficiency; D69.59 Other secondary thrombocytopenia; K74.60 Unspecified cirrhosis of liver; Z20.822 Contact with and (suspected) exposure to COVID-19; B19.20 Unspecified viral hepatitis C without hepatic coma; R10.9 Unspecified abdominal pain; R53.1 Weakness; E80.6 Other disorders of bilirubin metabolism; R16.1 Splenomegaly, not elsewhere classified; Z86.718 Personal history of other venous thrombosis and embolism; F33.8 Other recurrent depressive disorders; F41.9 Anxiety disorder, unspecified; M54.9 Dorsalgia, unspecified
CPT/HCPCS: 36415; 80048-TC; 80053-TC; 80076-TC; 83735-TC; 84100-TC; 85025-TC; 85610-TC; 85730-TC; 87081-TC; C9803; G0378; J1170; J2270; J2405; J7030